=== PATIENT | female | born 1945 | race Caucasian/White ===

== ENCOUNTER 2018-03-28 13:47 | Inpatient (IN) ==
[2018-03-28] MEDS ORDERED: Isovue-370 500 ML INFUS..BTL IV ONE ×2 (14:06→14:35)
[2018-03-28 14:28] LABS: Basophils # 0.1 K/mcL (0.0-0.2); Basophils % 0.8 %; Eosinophils # 0.2 K/mcL (0.0-0.6); Eosinophils % 2.8 %; Hematocrit 40.5 % (35.3-44.9); Hemoglobin 13.6 g/dL (11.5-15.4); Immature Granulocytes % 0.3 % (0-4); Lymphocytes # 2.5 K/mcL (0.6-4.6); Lymphocytes % 38.6 %; Mean Corpuscular HGB Conc 33.6 g/dL (31.6-35.5); Mean Corpuscular Volume 89.2 fL (83.0-100.0); Mean Platelet Volume 9.7 fL (9.4-12.4); Monocytes # 0.5 K/mcL (0.0-1.3); Monocytes % 7.6 %; Neutrophils # 3.2 K/mcL (1.6-8.9); Platelet Count 393 K/mcL (140-400); Red Blood Count 4.54 M/mcL (3.82-4.97); Red Cell Distribution Width 15.3 % (11.5-14.5); Segmented Neutrophils % 49.9 %
--- NOTE | 2018-03-28 14:41 | Emergency Department Note ---
Disposition Clinical Impression: Accelerated hypertension, Lung nodule Hypertension Qualifiers: Hypertension type: unspecified Qualified Code(s): I10 - Essential (primary) hypertension Disposition: Admitted As Inpatient Condition: Good Time of Disposition: 18:26 General Adult HPI - General Chief complaint: ED Dizziness Stated complaint: "htn" Time Seen by Provider: 03/28/18 13:56 Source: patient, family () Mode of arrival: ambulatory Limitations: no limitations Nursing Notes Reviewed: Yes Vital Signs Reviewed: Yes - History of Present Illness HPI Narrative: 72-year-old female recent diagnosis of hypertension presents emergency department with elevated blood pressure. Her blood pressure here is 231/78. She is also been experiencing some headache blurry vision. This is been ongoing for past several weeks. She was recently seen and evaluated 2 days ago for similar symptoms without the elevated blood pressure. She was recently started on lisinopril 20 mg in her primary care physician just recently increased it to twice a day. She is complaining of some pressure like pain in her chest mostly on the right side. She denies any shortness of breath. Denies any injury or trauma. No weakness to her extremities. She is also complaining of some abdominal pain that started past few days. Reports pain as sharp but currently not experiencing any now, she gets nauseated and denies vomiting. Denies any issues with urination. CT scan of her head was performed 2 days ago was unremarkable. Her headache is a throbbing sensation mostly on the right side. This is similar to her prior headaches in the past. She has been taken Tylenol with minimal relief. Pain Scale: 9 - Related Data Home Medications Medication Instructions Recorded Confirmed Allopurinol [Zyloprim 100 MG] 100 mg PO DAILY 03/28/18 03/28/18 Amitriptyline HCl 75 mg PO HS 03/28/18 03/28/18 Atorvastatin Calcium [Lipitor] 20 mg PO HS 03/28/18 03/28/18 Citalopram [CeleXA] 20 mg PO DAILY 03/28/18 03/28/18 DULoxetine [Cymbalta] 30 mg PO DAILY 03/28/18 03/28/18 Ergocalciferol (VITAMIN D2) 50,000 unit PO QWEEK 03/28/18 03/28/18 [Vitamin D2] Furosemide [Lasix] 40 mg PO DAILY 03/28/18 03/28/18 Lansoprazole [Prevacid] 15 mg PO DAILY 03/28/18 03/28/18 Lubiprostone [Amitiza] 24 mcg PO DAILY 03/28/18 03/28/18 Potassium Chloride [K-Tab ER] 20 meq PO HS 03/28/18 03/28/18 Pregabalin [Lyrica] 150 mg PO BID 03/28/18 03/28/18 Previous Rx's Medication Instructions Recorded Ranitidine HCl [Acid Editorial Director] 150 mg PO BID #10 tablet 03/24/18 hydrOXYzine HCl [Hydroxyzine HCl] 25 mg PO Q6HR PRN #20 tab 03/24/18 predniSONE [PredniSONE] 2 tab PO DAILY #6 tablet 03/24/18 Lisinopril [Zestril] 20 mg PO DAILY #15 tablet 03/25/18 Allergies Allergy/AdvReac Type Severity Reaction Status Date / Time diazepam [From Valium] AdvReac Hallucinati Verified 03/28/18 13:54 ng All systems ED: reviewed and negative except as stated. Review of Systems: As Per HPI Constitutional: Denies: fever, chills, weakness ENT ED: Denies: congestion Cardiovascular: Reports: chest pain. Denies: dyspnea on exertion Respiratory: Denies: cough, dyspnea Gastrointestinal: Reports: abdominal pain, nausea. Denies: vomiting, diarrhea Genitourinary: Denies: urgency, dysuria Musculoskeletal: Denies: neck pain Neurological: Reports: headache. Denies: weakness, numbness, paresthesias, confusion Past Medical History - Past Medical History Attestation: Yes The following information was validated with the patient. Source: patient Medical history: Reports: asthma, other Surgical history: Reports: non-contributory Psychiatric history: Reports: no psych history DAIRY MANAGEMENT SPECIALIST history: Reports: no DAIRY MANAGEMENT SPECIALIST history - Social History Smoking Status: Never smoker Smokeless Tobacco Status: No Alcohol use: Reports: none Drug use: Reports: none Physical Exam - General Limitations: no limitations General appearance: alert, in no apparent distress - Head Head exam: atraumatic, normocephalic, normal inspection - Eye Eye exam: Present: normal appearance, PERRL, EOMI. Absent: nystagmus - ENT ENT exam: normal exam, normal oropharynx, mucous membranes moist - Neck Neck exam: Present: normal inspection, full ROM, trachea midline - Chest Chest inspection: Present: normal inspection, symmetric chest wall rise. Absent : tenderness - Respiratory Respiratory exam: Present: normal lung sounds bilaterally. Absent: respiratory distress, wheezes - Cardiovascular Cardiovascular exam: Present: regular rate, normal rhythm, normal heart sounds - Expanded Cardiovascular Exam Peripheral pulses: 2+: radial (R), radial (L) - Abdominal Exam Abdominal exam: Present: soft, tenderness. Absent: distention, guarding, rebound, rigidity, normal bowel sounds, pulsatile mass Abdominal tenderness: Present: diffuse, mild - Extremities Exam Extremities exam: Present: normal inspection, full ROM, normal capillary refill. Absent: tenderness, pedal edema - Back Exam Back exam: Present: normal inspection, full ROM. Absent: tenderness - Neurological Exam Neurological exam: Present: alert, oriented X3, CN II-XII intact - Expanded Neurological Exam Patient oriented to: Present: person, place, time Speech: Present: fluid speech Cranial nerves: EOM function (II, III, IV, ): Normal, facial sensation (V): Normal, facial palsy (VII): Normal, gag reflex (IX): Normal, spinal accessory function (XI): Normal, tongue deviation (XII): Normal Motor strength - LUE: 5/5 Motor strength - RUE: 5/5 Motor strength - LLE: 5/5 Motor strength - RLE: 5/5 Upper motor neuron exam: [place] neglect: Absent bilaterally, pronator drift: Absent bilaterally Sensory exam upper extremity: light touch: Normal Sensory exam lower extremity: light touch: Normal - Psychiatric Psychiatric exam: Present: normal affect, normal mood - Skin Skin exam: Present: warm, dry, intact, normal color. Absent: rash, cyanosis, diaphoresis Course Course Narrative: Patients presenting with multiple complaints mostly headache and elevated blood pressure. This is been ongoing issue for the past week or so. Recently diagnosed with hypertension. Has been placed on lisinopril. Patient reports typical headache throbbing sensation to the back of her head. No recent injury or trauma. Ongoing for the past several days. Her blood pressures elevated here today and states she is been experiencing chest pressure for past several days. Chest pain workup initiated. On examination her heart's regular rate and rhythm. Her pulses are equal bilaterally in the radial. Her abdomen was soft but diffusely tender. There was no pulsatile mass. Given her symptoms concern for possible aortic dissection. Labs and images to evaluate for hypertensive emergency and dissection. EKG did not reveal any acute ischemic changes. Her heart rate is in the 50s. Initially would prefer as small but will treat with nitro given her chest pressure and elevated blood pressure. Will continue to monitor. - Reevaluation(s) Reevaluation #1: Blood pressure gradually improving from a systolic 231 to 211. She is not complaining of any chest pain but does report headache. Tylenol was given. She made a comment about having something stronger. After some further discussion she does recall she typically takes Lyrica for her migraines as well as a different medication but is unable to recall it at this time. She states she has not been taken her Lyrica for the past several days as she is been visiting her very sick sibling. Review for labs does not show any signs for an organ damage. Troponin lesson 0.03. No renal insufficiency. Her blood pressure continues to be elevated. There was one isolated blood pressure of a systolic 158 however it was isolated and a recheck showed systolic 211. At this time patient would benefit of further evaluation for the accelerated hypertension. Patients in agreement with this plan. Time: 17:54 Reevaluation #2: Patient's blood pressure is responsive to my card pain drip. She continues to be comfortable and stable. She states her headache is improving after the Tylenol as well as reduction of her blood pressure. She otherwise remains awake alert and oriented person place and time. Neurologic exam remains unremarkable without focal deficits. - Consultations Consultation #1: Spoke with on-call hospitalist jazmyn Fleming to admit for accelerated hypertension. No further orders at this time Will continue Nicardipine drip to lower BP to goal of SBP 180 Time: 18:25 Vital Signs Temperature 98.0 F 03/28/18 13:50 Pulse Rate 67 03/28/18 13:50 Respiratory Rate 16 03/28/18 13:50 Blood Pressure 231/78 03/28/18 13:50 O2 Sat by Pulse Oximetry 97 03/28/18 13:50 Temperature 98.0 F 03/28/18 20:59 Pulse Rate 65 03/28/18 20:59 Respiratory Rate 18 03/28/18 20:59 Blood Pressure 158/69 03/28/18 20:59 O2 Sat by Pulse Oximetry 97 03/28/18 20:59 Oxygen Delivery Oxygen Delivery Room Air Medical Decision Making - MDM Narrative Medical decision making narrative: Patient was discussed with my attending physician who agrees with ED management and final disposition. They independently evaluated the patient. Please refer to their attestation to this encounter for additional information. This note was generated by [employer] voice recognition software and as a result grammatical or spelling errors may occur using this program. - Medical Records Medical records reviewed: Yes I reviewed the patient's medical records. - Lab Data Lab results reviewed: Yes I reviewed the patient's lab results. Result diagrams: 03/28/18 14:15 03/28/18 14:15 Lab Results 03/28/18 03/28/18 03/28/18 Range/Units 14:05 14:15 14:15 WBC 6.4 (4.3-11.1) K/mcL RBC 4.54 (3.82-4.97) M/mcL Hgb 13.6 (11.5-15.4) g/dL Hct 40.5 (35.3-44.9) % MCV 89.2 (83.0-100.0) fL MCH 30.0 (28.0-33.3) pg MCHC 33.6 (31.6-35.5) g/dL RDW 15.3 H (11.5-14.5) % Plt Count 393 (140-400) K/mcL MPV 9.7 (9.4-12.4) fL Immature Gran % 0.3 (0-4) % Seg Neutrophils % 49.9 % Lymphocytes % 38.6 % Monocytes % 7.6 % Eosinophils % 2.8 % Basophils % 0.8 % Neutrophils # 3.2 (1.6-8.9) K/mcL Lymphocytes # 2.5 (0.6-4.6) K/mcL Monocytes # 0.5 (0.0-1.3) K/mcL Eosinophils # 0.2 (0.0-0.6) K/mcL Basophils # 0.1 (0.0-0.2) K/mcL PT 10.1 (9.4-12.1) Seconds INR 0.9 APTT 33.5 (26.0-36.0) Seconds Sodium 142 (136-145) mEq/L Potassium 3.4 L (3.5-5.1) mEq/L Chloride 107 (98-107) mEq/L Carbon Dioxide 26 (23-29) mEq/L BUN 20 (8-23) mg/dL Creatinine 0.93 (0.60-1.20) mg/dL Est GFR ( Amer) > 60 (> 60) Est GFR (Non-Af Amer) 59 L (> 60) BUN/Creatinine Ratio 22 (6-26) Glucose 92 (70-105) mg/dL Calculated Osmolality 296 (280-300) Calcium 9.5 (8.6-10.3) mg/dL Total Bilirubin (0.3-1.0) mg/dL Direct Bilirubin (0.0-0.2) mg/dL Indirect Bilirubin (0.0-1.2) mg/dL AST (13-39) Units/L ALT (7-52) Units/L Alkaline Phosphatase (34-104) Units/L Troponin I < 0.03 (< 0.04) ng/mL Serum Total Protein (6.4-8.9) g/dL Albumin (3.5-5.7) g/dL Globulin (2.4-3.5) g/dL Albumin/Globulin Ratio (1.1-2.2) 03/28/18 Range/Units 15:21 WBC (4.3-11.1) K/mcL RBC (3.82-4.97) M/mcL Hgb (11.5-15.4) g/dL Hct (35.3-44.9) % MCV (83.0-100.0) fL MCH (28.0-33.3) pg MCHC (31.6-35.5) g/dL RDW (11.5-14.5) % Plt Count (140-400) K/mcL MPV (9.4-12.4) fL Immature Gran % (0-4) % Seg Neutrophils % % Lymphocytes % % Monocytes % % Eosinophils % % Basophils % % Neutrophils # (1.6-8.9) K/mcL Lymphocytes # (0.6-4.6) K/mcL Monocytes # (0.0-1.3) K/mcL Eosinophils # (0.0-0.6) K/mcL Basophils # (0.0-0.2) K/mcL PT (9.4-12.1) Seconds INR APTT (26.0-36.0) Seconds Sodium (136-145) mEq/L Potassium (3.5-5.1) mEq/L Chloride (98-107) mEq/L Carbon Dioxide (23-29) mEq/L BUN (8-23) mg/dL Creatinine (0.60-1.20) mg/dL Est GFR ( Amer) (> 60) Est GFR (Non-Af Amer) (> 60) BUN/Creatinine Ratio (6-26) Glucose (70-105) mg/dL Calculated Osmolality (280-300) Calcium (8.6-10.3) mg/dL Total Bilirubin 0.4 (0.3-1.0) mg/dL Direct Bilirubin 0.1 (0.0-0.2) mg/dL Indirect Bilirubin 0.3 (0.0-1.2) mg/dL AST 16 (13-39) Units/L ALT 11 (7-52) Units/L Alkaline Phosphatase 67 (34-104) Units/L Troponin I (< 0.04) ng/mL Serum Total Protein 6.6 (6.4-8.9) g/dL Albumin 4.0 (3.5-5.7) g/dL Globulin 2.6 (2.4-3.5) g/dL Albumin/Globulin Ratio 1.5 (1.1-2.2) - Radiology Data Radiology results reviewed: Yes I reviewed the patient's radiology results. Chest X-Ray 03/28/18 14:05 IMPRESSION: No evidence for acute cardiopulmonary process. D/ / Robin Navas MD / Robin Navas MD Interpreting Provider: Robin Navas MD Head CTA 03/28/18 14:06 IMPRESSION: Unremarkable CTA of the head. 30% focal stenosis at the origin of the right cervical internal carotid artery secondary to atherosclerotic disease. No acute abnormality or flow-limiting stenosis in the remainder of the major arteries of the neck. No acute intracranial abnormality. Mild parenchymal volume loss. Mild chronic microvascular disease. Sinus mucosal disease, most pronounced in the right sphenoid sinus. D/ / Mitchel Serrato MD / Mitchel Serrato MD Interpreting Provider: Mitchel Serrato MD Neck CTA 03/28/18 14:06 IMPRESSION: Unremarkable CTA of the head. 30% focal stenosis at the origin of the right cervical internal carotid artery secondary to atherosclerotic disease. No acute abnormality or flow-limiting stenosis in the remainder of the major arteries of the neck. No acute intracranial abnormality. Mild parenchymal volume loss. Mild chronic microvascular disease. Sinus mucosal disease, most pronounced in the right sphenoid sinus. D/ / Mitchel Serrato MD / Mitchel Serrato MD Interpreting Provider: Mitchel Serrato MD Abdomen/Pelvis CTA 03/28/18 14:35 IMPRESSION: No evidence of dissection or aneurysm in the chest, abdomen or pelvis. Specifically, no evidence of aortic dissection. No evidence of central pulmonary embolism. 7 mm ground-glass nodule in the right middle lobe. Please see follow-up recommendations below. Otherwise no acute focal process in the chest, abdomen or pelvis. RECOMMENDATIONS: Fleischner Society guidelines for follow-up and management of incidentally detected subsolid pulmonary nodules: Solitary ground glass nodule > than or equal to 6 mm - CT at 6-12 months to confirm persistence, then CT every 2 years until 5 years. - Low risk patients include individuals with minimal or absent history of smoking and other known risk factors. - High risk patients include individuals with a history or smoking or known risk factors. Radiology 2017 http://pubs.rsna.org/doi/full/10.1148/radiol.[email or web address] Subcentimeter incidental thyroid nodule No follow-up imaging is recommended. Reference: J Am Brain Radiol. 2015 Aug;12(2): 143-50 D/ /28/2018 17:18:56 Navneet Roy MD / parris Interpreting Provider: Navneet Roy MD Chest CTA 03/28/18 14:35 IMPRESSION: No evidence of dissection or aneurysm in the chest, abdomen or pelvis. Specifically, no evidence of aortic dissection. No evidence of central pulmonary embolism. 7 mm ground-glass nodule in the right middle lobe. Please see follow-up recommendations below. Otherwise no acute focal process in the chest, abdomen or pelvis. RECOMMENDATIONS: Fleischner Society guidelines for follow-up and management of incidentally detected subsolid pulmonary nodules: Solitary ground glass nodule > than or equal to 6 mm - CT at 6-12 months to confirm persistence, then CT every 2 years until 5 years. - Low risk patients include individuals with minimal or absent history of smoking and other known risk factors. - High risk patients include individuals with a history or smoking or known risk factors. Radiology 2017 http://pubs.rsna.org/doi/full/10.1148/radiol.[email or web address] Subcentimeter incidental thyroid nodule No follow-up imaging is recommended. Reference: J Am Brain Radiol. 2014;12(2): 143-50 D/ / 03/28/2018 17:18:56 Navneet Roy MD / parris Interpreting Provider: Navneet Roy MD - EKG Data EKG #1 EKG attestation: Yes I reviewed and interpreted this EKG. EKG results narrative: EKG performed 1410 normal sinus rhythm 66 beats per minute, normal axis, no ST elevation or depression, good R wave progression, left atrial enlargement, intervals appear within normal limits compared to prior EKG performed 2017 with similar consistent findings of sinus bradycardia 46 bpm. No acute ischemic changes.
[2018-03-28 14:47] LABS: Troponin I < 0.03 ng/mL (< 0.04)
[2018-03-28 14:52] LABS: INR 0.9; Prothrombin Time 10.1 Seconds (9.4-12.1)
[2018-03-28 14:55] LABS: Activated Partial Thrombo Time 33.5 Seconds (26.0-36.0)
[2018-03-28 15:11] LABS: BUN/Creatinine Ratio 22 (6-26); Blood Urea Nitrogen 20 mg/dL (8-23); Calcium 9.5 mg/dL (8.6-10.3); Carbon Dioxide 26 mEq/L (23-29); Chloride 107 mEq/L (98-107); Glucose 92 mg/dL (70-105); Osmolality,Calculated 296 (280-300); Potassium 3.4 mEq/L (3.5-5.1); Sodium 142 mEq/L (136-145); eGFR For Non-African Americans 59 (> 60)
[2018-03-28] MEDS: Nitroglycerin 0.4 MG TAB.SUBL SL ONE ×2 (15:17→15:36)
--- NOTE | 2018-03-28 15:34 | Emergency Department Note ---
Disposition Clinical Impression: Hypertension Qualifiers: Hypertension type: unspecified Qualified Code(s): I10 - Essential (primary) hypertension Disposition: Still a Patient Forms: ED Satisfaction Letter General Adult HPI - General Chief complaint: ED Dizziness Stated complaint: "htn" Time Seen by Provider: 03/28/18 13:56 Source: patient, family () Mode of arrival: ambulatory Limitations: no limitations - History of Present Illness Pain Scale: 9 - Related Data Previous Rx's Medication Instructions Recorded Ranitidine HCl [Acid Electric Tool Repairer] 150 mg PO BID #10 tablet 03/24/18 hydrOXYzine HCl [Hydroxyzine HCl] 25 mg PO Q6HR PRN #20 tab 03/24/18 predniSONE [PredniSONE] 2 tab PO DAILY #6 tablet 03/24/18 Lisinopril [Zestril] 20 mg PO DAILY #15 tablet 03/25/18 Allergies Allergy/AdvReac Type Severity Reaction Status Date / Time diazepam [From Valium] AdvReac Hallucinati Verified 03/28/18 13:54 ng Constitutional: Denies: fever, chills, weakness ENT ED: Denies: congestion Cardiovascular: Reports: chest pain. Denies: dyspnea on exertion Respiratory: Denies: cough, dyspnea Gastrointestinal: Reports: abdominal pain, nausea. Denies: vomiting, diarrhea Genitourinary: Denies: urgency, dysuria Musculoskeletal: Denies: neck pain Neurological: Reports: headache. Denies: weakness, numbness, paresthesias, confusion Past Medical History - Past Medical History Medical history: Reports: asthma, other Surgical history: Reports: non-contributory Psychiatric history: Reports: no psych history GEAR SETTER history: Reports: no GEAR SETTER history - Social History Smoking Status: Never smoker Smokeless Tobacco Status: No Alcohol use: Reports: none Drug use: Reports: none Physical Exam - General Limitations: no limitations General appearance: alert, in no apparent distress Course Vital Signs Temperature 98.0 F 03/28/18 13:50 Pulse Rate 67 03/28/18 13:50 Respiratory Rate 16 03/28/18 13:50 Blood Pressure 231/78 03/28/18 13:50 O2 Sat by Pulse Oximetry 97 03/28/18 13:50 Temperature 98.0 F 03/28/18 14:15 Pulse Rate 52 03/28/18 14:17 Respiratory Rate 16 09/07/18 14:17 Blood Pressure 211/75 03/28/18 14:17 O2 Sat by Pulse Oximetry 99 03/28/18 14:17 Oxygen Delivery Oxygen Delivery Room Air Medical Decision Making - Lab Data Result diagrams: 03/28/18 14:15 03/28/18 14:15 Lab Results 03/28/18 03/28/18 03/28/18 Range/Units 14:05 14:15 14:15 WBC 6.4 (4.3-11.1) K/mcL RBC 4.54 (3.82-4.97) M/mcL Hgb 13.6 (11.5-15.4) g/dL Hct 40.5 (35.3-44.9) % MCV 89.2 (83.0-100.0) fL MCH 30.0 (28.0-33.3) pg MCHC 33.6 (31.6-35.5) g/dL RDW 15.3 H (11.5-14.5) % Plt Count 393 (140-400) K/mcL MPV 9.7 (9.4-12.4) fL Immature Gran % 0.3 (0-4) % Seg Neutrophils % 49.9 % Lymphocytes % 38.6 % Monocytes % 7.6 % Eosinophils % 2.8 % Basophils % 0.8 % Neutrophils # 3.2 (1.6-8.9) K/mcL Lymphocytes # 2.5 (0.6-4.6) K/mcL Monocytes # 0.5 (0.0-1.3) K/mcL Eosinophils # 0.2 (0.0-0.6) K/mcL Basophils # 0.1 (0.0-0.2) K/mcL PT 10.1 (9.4-12.1) Seconds INR 0.9 APTT 33.5 (26.0-36.0) Seconds Sodium 142 (136-145) mEq/L Potassium 3.4 L (3.5-5.1) mEq/L Chloride 107 (98-107) mEq/L Carbon Dioxide 26 (23-29) mEq/L BUN 20 (8-23) mg/dL Creatinine 0.93 (0.60-1.20) mg/dL Est GFR ( Amer) > 60 (> 60) Est GFR (Non-Af Amer) 59 L (> 60) BUN/Creatinine Ratio 22 (6-26) Glucose 92 (70-105) mg/dL Calculated Osmolality 296 (280-300) Calcium 9.5 (8.6-10.3) mg/dL Troponin I < 0.03 (< 0.04) ng/mL Attestation Statement - Attestation Attestation: I examined this patient and my medical decision-making was reviewed with the Resident Physician. I agree with the documented findings, disposition and treatment plan as described except to the extent set forth below. 72 year old female presents to the ED with complaints of HTN and headache with dizziness and blurriness to her vision in addition to chest and abdominal pain with tenderness in the abdomen. She has a history of HTN and is currently only on lisinopril 20mg daily and hydroxyzine . Josette current blood presure is systolic 200s. We will do a hypertensive workup in addition to CTA head, neck, chest and abdomen for dissection and aneurysmal bleeds. Nickie will be treated with ntro for blood pressur emaangement as she is currenlty bradycardiac to the 50s.
[2018-03-28] MEDS: 0.9 % Sodium Chloride 500 ML IVC SCH ×2 (15:38→21:58)
[2018-03-28 16:08] LABS: Albumin/Globulin Ratio 1.5 (1.1-2.2); Bilirubin,Direct 0.1 mg/dL (0.0-0.2); Bilirubin,Indirect 0.3 mg/dL (0.0-1.2); Bilirubin,Total 0.4 mg/dL (0.3-1.0); Globulin 2.6 g/dL (2.4-3.5); Total Protein 6.6 g/dL (6.4-8.9)
[2018-03-28] MEDS: niCARdipine 40 MG/200 ML MLS IVC SCH (19:00)
[2018-03-28] MEDS: Acetaminophen/Aspirin/Caffeine TABLET PO PRN (21:54)
[2018-03-28] MEDS ORDERED: Naloxone 0.4 MG/ML INJ IVP PRN (22:35)
--- NOTE | 2018-03-28 22:59 | Internal Med History&Physical ---
Date of Encounter: 03/29/18 Time of Encounter: 21:28 Internal Medicine - H&P: HPI Chief complaint: Hypertensive urgency Admitted From: Emergency Dept Plans for Post Hospital Care: Home History of present illness: Ms. Cotter is a 72 year old female Patient presented to the ER for elevated blood pressure and headache. She states that she was in the ER 3 days ago with fever, headache and was found to have elevated blood pressure at that time as well. She returned this evening with a headache that did not resolve and was found to have continued hypertension. She states that she thinks it was triggered by being outside at her brother's , as she has a history of allergies. The headache is located across the front of her head, and is worsened with light. She usually takes Excedrin for headaches, and it has helped but not eliminated the pain. In the ER her blood pressure was 231/78, head and neck CT were unremarkable. She has a recent history of hypertension and takes lisinopril. She was started on Cardene drip and admitted for observation of her blood pressure and headache. Upon my assessment patient's blood pressure has improved to systolic of 170s. She states that she also has had right sided chest pain that is reproducible with palpation and epigastric abdominal pain, both of which have been presents for several weeks. She denies leg pain, has had nausea and vomiting. No diarrhea lately but comes and goes. Past Med Surg Social Fam HX - Past Medical History Medical history: asthma, other Additional medical history: chronic back pain, blood clot in bladder, prolapsed bladder Psychiatric history: no psych history - Past Surgical History Surgical History: non-contributory Additional surgical history: bladder surgery (mesh) - Social History Smoking Status: Never smoker Smokeless Tobacco Status: No Alcohol use: none Drug use: none Internal Medicine - H&P: Meds Ranitidine HCl [Acid Multifocal Button Inspector] 150 mg PO BID #10 tablet 03/24/18 [Rx] hydrOXYzine HCl [Hydroxyzine HCl] 25 mg PO Q6HR PRN #20 tab 03/24/18 [Rx] predniSONE [PredniSONE] 2 tab PO DAILY #6 tablet 03/24/18 [Rx] Lisinopril [Zestril] 20 mg PO DAILY #15 tablet 03/25/18 [Rx] Allopurinol [Zyloprim 100 MG] 100 mg PO DAILY 03/28/18 [History] Amitriptyline HCl 75 mg PO HS 03/28/18 [History] Atorvastatin Calcium [Lipitor] 20 mg PO HS 03/28/18 [History] Citalopram [CeleXA] 20 mg PO DAILY 03/28/18 [History] DULoxetine [Cymbalta] 30 mg PO DAILY 03/28/18 [History] Ergocalciferol (VITAMIN D2) [Vitamin D2] 50,000 unit PO QWEEK 03/28/18 [History] Furosemide [Lasix] 40 mg PO DAILY 03/28/18 [History] Lansoprazole [Prevacid] 15 mg PO DAILY 03/28/18 [History] Lubiprostone [Amitiza] 24 mcg PO DAILY 03/28/18 [History] Potassium Chloride [K-Tab ER] 20 meq PO HS 03/28/18 [History] Pregabalin [Lyrica] 150 mg PO BID 03/28/18 [History] 3 Allergy/AdvReac Type Severity Reaction Status Date / Time diazepam [From Valium] AdvReac Hallucinati Verified 03/28/18 13:54 ng All Systems PM: A 10-system review of systems was performed and is negative for pertinent findings except as documented above in the HPI. - Constitutional Vitals: Temp Pulse Resp BP Pulse Ox 98.0 F 65 18 158/69 97 03/28/18 20:59 03/28/18 20:59 03/28/18 20:59 03/28/18 20:59 03/28/18 20:59 General appearance: Present: cooperative, mild distress, A&O X 3, pleasant, answers questions appropriately Exam: Distress due to head ache - Head Head exam: Present: atraumatic, normocephalic - Eye Eye exam: Present: EOMI, normal appearance - Neck Neck exam general surgery: Present: full ROM. Absent: tenderness - Respiratory Respiratory exam: Present: chest wall tenderness, CTAB. Absent: rales, respiratory distress, rhonchi, wheezes Additional comments: Upper right sided pain with palpation, mild - Cardiovascular Cardiovascular exam: Present: RRR. Absent: diastolic murmur, systolic murmur - GI/Abdominal GI/Abdominal exam: Present: normal bowel sounds, soft, tenderness Additional comments: epigastric tenderness with palpation. - Extremities Exam Extremities exam: Present: warm, radial pulses palpable and symmetrical. Absent : pedal edema, tenderness - Neurological Exam Neurological exam: Present: no focal deficits, strengths equal and symetr throughout. Absent: motor sensory deficit, facial droop, speech deficit - Skin Skin exam: Present: dry, normal color, warm Internal Med - H&P Results - Labs CBC & Chem 7: 03/29/18 03:15 03/29/18 03:15 - Assessment and plan (1) Hypertensive urgency Current Visit: Yes Status: Acute Assessment and plan: Patient started on Cardene drip, blood pressures have improved. Continue to monitor while on the drip Will need to monitor blood pressures after switching to oral alternatives to ensure control. (2) Headache Current Visit: No Status: Acute Assessment and plan: Likely secondary to blood pressure and stress of recent loss of close family member. Takes Excedrin at home. Head and neck CT unremarkable. Continue Excedrin Caution Toradol due to kidney function, phenergan and benadryl IV now. Qualifiers: Headache type: unspecified Headache chronicity pattern: chronic headache Intractability: not intractable Qualified Code(s): R51 - Headache (3) Epigastric abdominal pain Current Visit: Yes Status: Acute Assessment and plan: Unclear etiology, has been present for several weeks. Abdomen and pelvis CT unremarkable. Could be secondary to nausea, as some tenderness with palpation. Patient still able to eat and drink with out difficulty. Continue to monitor. (4) Nausea & vomiting Current Visit: Yes Status: Acute Assessment and plan: Patient had 1 episode of vomting during the night Will add zofran PRN Qualifiers: Qualified Code(s): R11.2 - Nausea with vomiting, unspecified (5) Right-sided chest wall pain Current Visit: Yes Status: Acute Assessment and plan: Reproducible with palpation, CT angio showed 7mm ground glass nodule in right middle lobe. Pain likely not cardiac in nature. Radiology recommended repeat CT 6-12 months to confirm persistence, then CT every 2 years until 5 years. Continue to monitor. (6) CKD (chronic kidney disease) stage 3, GFR 30-59 ml/min Current Visit: Yes Status: Acute Assessment and plan: Caution with nephrotoxic medications like toradol, also due to her elevated blood pressure. Continue to monitor Repeat labs in the morning. - Time Spent With Patient Total time spent is greater than 50% in coordination of care (as documented) at patient's floor/unit and/or counseling patient: Greater than 35 minutes
[2018-03-29] MEDS ORDERED: *HR* Promethazine 25 MG/ML VIAL IVP ONE (00:03)
[2018-03-29] MEDS: Ondansetron ODT 4 MG TAB.RAPDIS SL PRN ×2 (02:54→07:31)
[2018-03-29] MEDS: Acetaminophen/Aspirin/Caffeine TABLET PO PRN ×3 (03:55→23:31)
[2018-03-29 04:19] LABS: BUN/Creatinine Ratio 14 (6-26); Blood Urea Nitrogen 11 mg/dL (8-23); Calcium 9.5 mg/dL (8.6-10.3); Carbon Dioxide 25 mEq/L (23-29); Chloride 102 mEq/L (98-107); Glucose 123 mg/dL (70-105); Osmolality,Calculated 285 (280-300); Potassium 3.3 mEq/L (3.5-5.1); Sodium 137 mEq/L (136-145); eGFR For Non-African Americans > 60 (> 60)
[2018-03-29 04:29] LABS: Hematocrit 43.4 % (35.3-44.9); Hemoglobin 14.6 g/dL (11.5-15.4); Mean Corpuscular HGB Conc 33.6 g/dL (31.6-35.5); Mean Corpuscular Hemoglobin 29.4 pg (28.0-33.3); Mean Corpuscular Volume 87.5 fL (83.0-100.0); Mean Platelet Volume 10.3 fL (9.4-12.4); Platelet Count 443 K/mcL (140-400); Red Blood Count 4.96 M/mcL (3.82-4.97); Red Cell Distribution Width 15.2 % (11.5-14.5)
[2018-03-29] MEDS: niCARdipine 40 MG/200 ML MLS IVC SCH (07:31)
[2018-03-29] MEDS ORDERED: Potassium Chloride Elixir 20 MEQ/15 ML UDC PO ONE (07:54)
[2018-03-29] MEDS ORDERED: Furosemide 40 MG TABLET PO SCH (09:00)
[2018-03-29] MEDS: Lisinopril 20 MG TABLET PO SCH (09:18)
[2018-03-29] MEDS ORDERED: *HR* Labetalol 20 MG/4 ML SYRINGE IVP PRN (09:34)
--- NOTE | 2018-03-29 09:41 | Internal Med Progress Note ---
Hospitalist Progress Note - Encounter Date of Encounter: 03/29/18 Time of Encounter: 09:48 - Subjective Interval History: Patient evaluated at bedside, she report having a frontal headache, associated with nausea denies vomiting or focal deficit or neurological changes. Denies chest pain or shortness of breath as well as abdominal pain. - Exam Vitals: Temp Pulse Resp BP Pulse Ox 97.8 F 82 18 158/79 94 03/29/18 07:39 03/29/18 07:39 03/29/18 07:39 03/29/18 07:39 03/29/18 07:39 Exam: General: Alert and oriented 3. Mild distress due to headache. Skin:Normal color, no rash, no lesions. HEENT:EOM, pupils equal, round and reactive. Cardiovascular: Regular, Normal S1 & S2, no rubs, murmurs or gallops. Lungs: Clear breath sounds bilaterally, no wheezes or crackles. Abdomen: Soft, NABS in all 4 quadrants, suprapubic tenderness to deep palpation. No guarding. Extremities: No deformity, no edema or tenderness, no joint swelling or clubbing. Neurological:Normal cognition and motor skills. CN II-XII intact. Rest of the physical exam is non contributory - Assessment and Plan (1) Uncontrolled hypertension Current Visit: Yes Status: Acute Assessment and Plan: Patient reports not being compliant with her home antihypertensive medications for some time as she was going through some family issues and felt that she did not need the medications. Plan: - D/C nicardipine drip - Patient started on her home antihypertensive medications - Furosemide 40mg daily and Lisinopril 20mg daily - Labetalol 5mg/IV Q6HR PRN for SBP >190 - Patient educated about the importance of being compliant with her medications. - Needs to remain in the hospital for close BP monitoring, she might need adjustment of her home antihypertensive medications before D/C - D/C IV fluids (2) Headache Current Visit: No Status: Acute Assessment and Plan: Patient has a Hx of migraine headache. Head CT: No acute intracranial abnormality. Plan: - Continue Exedrin EX 2 pills Q6HR PRN for pain (3) Hypokalemia Current Visit: No Status: Acute Assessment and Plan: Electrolytes replaced. Follow-up a.m. BMP. (4) Nausea Current Visit: Yes Status: Acute Assessment and Plan: Reports feeling nauseated. States that this normally happens when she has migraine headache Plan: - On Ondansetron 4mg/IV Q4HR PRN for nausea/vomiting - DVT Prophylaxis: Chemical DVT prophylaxis with Heparin 5000 units Q12HR SUbQ - Time Spent with Patient Total time spent is greater than 50% in coordination of care (as documented) at patient's floor/unit and/or counseling patient: Greater than 35 minutes Plan of Care Discussed with: patient (and the nurse.) Internal Medicine: Result - Labs CBC & Chem 7: 03/29/18 03:15 03/29/18 03:15 Labs: Short CBC 03/29/18 Range/Units 03:15 WBC 9.4 (4.3-11.1) K/mcL Hgb 14.6 (11.5-15.4) g/dL Hct 43.4 (35.3-44.9) % Plt Count 443 H (140-400) K/mcL BMP 03/29/18 03:15 Sodium 137 Potassium 3.3 L Chloride 102 Carbon Dioxide 25 BUN 11 Creatinine 0.76 Glucose 123 H Calcium 9.5 - ABG Interpretation ABG results: PT/INR, D-dimer PT 10.1 Seconds (9.4-12.1) 03/28/18 14:05 Consult Discharge Plan - Plan Referrals: Pedro Melendrez MD [Primary Care Provider] - (2) Headache Qualifiers: Headache type: unspecified Headache chronicity pattern: chronic headache Intractability: not intractable Qualified Code(s): R51 - Headache
[2018-03-29] MEDS: *HR* Promethazine 25 MG/ML VIAL IVP PRN ×2 (16:33→23:32)
[2018-03-29] MEDS: *HR* Heparin 5,000 UNIT/ML VIAL SQ SCH (16:36)
[2018-03-30] MEDS: *HR* Promethazine 25 MG/ML VIAL IVP PRN (06:28)
[2018-03-30] MEDS: *HR* Heparin 5,000 UNIT/ML VIAL SQ SCH ×2 (06:29→17:38)
[2018-03-30 06:47] LABS: Basophils % 0.4 %; Eosinophils # 0.1 K/mcL (0.0-0.6); Hematocrit 44.2 % (35.3-44.9); Hemoglobin 14.6 g/dL (11.5-15.4); Immature Granulocytes % 0.1 % (0-4); Lymphocytes # 1.7 K/mcL (0.6-4.6); Lymphocytes % 17.6 %; Mean Corpuscular Hemoglobin 28.8 pg (28.0-33.3); Mean Corpuscular Volume 87.2 fL (83.0-100.0); Mean Platelet Volume 9.8 fL (9.4-12.4); Monocytes # 0.6 K/mcL (0.0-1.3); Monocytes % 6.3 %; Neutrophils # 7.3 K/mcL (1.6-8.9); Platelet Count 476 K/mcL (140-400); Red Blood Count 5.07 M/mcL (3.82-4.97); Red Cell Distribution Width 15.5 % (11.5-14.5); Segmented Neutrophils % 74.6 %
[2018-03-30 07:11] LABS: Calcium 9.8 mg/dL (8.6-10.3); Magnesium 2.2 mg/dL (1.6-2.6); Potassium 3.3 mEq/L (3.5-5.1)
[2018-03-30] MEDS: D5% in 0.45% NACL 1,000 ML IVC SCH ×2 (09:13→22:03)
[2018-03-30] MEDS: Ondansetron 4 MG/2 ML VIAL IVP SCH ×4 (09:13→21:59)
[2018-03-30] MEDS ORDERED: hydrALAZINE 25 MG TABLET PO ONE (09:21)
[2018-03-30] MEDS: Lisinopril 20 MG TABLET PO SCH (10:42)
[2018-03-30] MEDS ORDERED: SUMAtriptan succinate 25 MG TABLET PO ONE (11:23)
[2018-03-30] MEDS: *HR* Promethazine 25 MG/ML VIAL IVP SCH ×2 (11:28→17:38)
--- NOTE | 2018-03-30 11:28 | Internal Med Progress Note ---
Hospitalist Progress Note - Encounter Date of Encounter: 03/30/18 Time of Encounter: 11:25 - Subjective Interval History: Evaluated at bedside, patient reports that she is still having a headache, associated with nausea, vomiting and abdominal discomfort. Denies chest pain, of shortness of breath. Denies fever or chills. - Exam Vitals: Temp Pulse Resp BP Pulse Ox 98.4 F 58 18 142/77 94 03/30/18 07:17 03/30/18 09:45 03/30/18 07:17 03/30/18 09:45 03/30/18 07:17 Exam: General: Alert and oriented 3. Mild distress due to nausea and vomiting. Cardiovascular: Regular, Normal S1 & S2, no rubs, murmurs or gallops. Lungs: Clear breath sounds bilaterally, no wheezes or crackles. Abdomen: Soft, NABS in all 4 quadrants, midl generalized tenderness to deep palpation. No guarding. Extremities: No deformity, no edema or tenderness, no joint swelling or clubbing. Neurological: CN II-XII intact. Rest of the physical exam is non contributory - Assessment and Plan (1) Uncontrolled hypertension Current Visit: Yes Status: Acute Assessment and Plan: BP sub-optimally controlled Plan: - Increase metoprolol to 50mg/PO BID - Started on Hydralazine 50mg TID PO - D/C furosemide - Continue lisinopril 20mg PO daily - ON labetalol 5mg/IV PRN for SBP >190 (2) Headache Current Visit: No Status: Acute Assessment and Plan: Patient still reporting headache. Plan: - Continue exedrin EX - Started on Sumatriptan 25mg PO daily - (3) Hypokalemia Current Visit: No Status: Acute Assessment and Plan: Possible due to GI loss vs diruretic Plan: - Electrolyte replaced (4) Nausea & vomiting Current Visit: Yes Status: Acute Assessment and Plan: Associated with abdominal discomfort. Plan: - started on Ondansetrom 4mg/IV Q4 hours and Promethazine 12.5mg/IV scheduled - if abdominal pain persist will consider CT abd/pelvis for further evaluation. (5) Acute kidney injury Current Visit: Yes Status: Acute Assessment and Plan: Possible due to diruretic. Plan: - Discontinue Furosemide - Started on gentle IV hydration with D50.45% at 75mls/hr DVT Prophylaxis: Continue chemical DVT prophylaxis with heparin 5000 units subcutaneous twice a day - Summary of Assessment and Plan Summary of Assessment and Plan: Patient to remain in the hospital for intractable nausea. Vomiting. - Time Spent with Patient Total time spent is greater than 50% in coordination of care (as documented) at patient's floor/unit and/or counseling patient: Greater than 35 minutes Plan of Care Discussed with: patient (and the nurse.) Internal Medicine: Result - Labs CBC & Chem 7: 03/30/18 06:09 03/30/18 06:09 Labs: Short CBC 03/30/18 Range/Units 06:09 WBC 9.8 (4.3-11.1) K/mcL Hgb 14.6 (11.5-15.4) g/dL Hct 44.2 (35.3-44.9) % Plt Count 476 H (140-400) K/mcL Neutrophils # 7.3 (1.6-8.9) K/mcL BMP 03/30/18 06:09 Sodium 137 Potassium 3.3 L Chloride 99 Carbon Dioxide 27 BUN 21 Creatinine 1.24 H Glucose 140 H Calcium 9.8 - ABG Interpretation ABG results: PT/INR, D-dimer PT 10.1 Seconds (9.4-12.1) 03/28/18 14:05 Consult Discharge Plan - Plan Referrals: Pedro Melendrez MD [Primary Care Provider] - (2) Headache Qualifiers: Headache type: unspecified Headache chronicity pattern: chronic headache Intractability: not intractable Qualified Code(s): R51 - Headache (4) Nausea & vomiting Qualifiers: Vomiting type: unspecified Vomiting Intractability: non-intractable Qualified Code(s): R11.2 - Nausea with vomiting, unspecified
[2018-03-30] MEDS: hydrALAZINE 25 MG TABLET PO SCH (15:59)
[2018-03-30] MEDS ORDERED: hydrALAZINE 25 MG TABLET PO SCH (16:00)
[2018-03-31] MEDS: hydrALAZINE 25 MG TABLET PO SCH ×3 (00:11→15:50)
[2018-03-31] MEDS: *HR* Promethazine 25 MG/ML VIAL IVP SCH ×2 (00:24→06:05)
[2018-03-31] MEDS: Ondansetron 4 MG/2 ML VIAL IVP SCH ×6 (00:24→21:26)
[2018-03-31 05:24] LABS: Calcium 9.3 mg/dL (8.6-10.3); Magnesium 1.9 mg/dL (1.6-2.6); Potassium 3.7 mEq/L (3.5-5.1)
[2018-03-31] MEDS: *HR* Heparin 5,000 UNIT/ML VIAL SQ SCH ×2 (06:05→17:28)
[2018-03-31] MEDS: Lisinopril 20 MG TABLET PO SCH (08:05)
--- NOTE | 2018-03-31 09:10 | Internal Med Progress Note ---
Hospitalist Progress Note - Encounter Date of Encounter: 03/31/18 Time of Encounter: 09:06 - Subjective Interval History: Evaluated at bedside, reports that her headache significantly improve after she received sumatriptan yesterday. Report still having a slight headache but much better than yesterday. States that she has been unable to keep anything down due to nausea and vomiting. Denies hematemesis. But reports abdominal pain. Denies chest pain or shortness of breath. No focal weakness, or neurological deficit. - Exam Vitals: Temp Pulse Resp BP Pulse Ox 99.1 F 48 16 140/64 93 03/31/18 08:02 03/31/18 08:02 03/31/18 08:02 03/31/18 08:02 03/31/18 08:02 Exam: General: Alert and oriented 3. Mild distress due to persistent nausea and vomiting. Cardiovascular: Regular, Normal S1 & S2, no rubs, murmurs or gallops. Lungs: Clear breath sounds bilaterally, no wheezes or crackles. Abdomen: Soft, NABS in all 4 quadrants, mild generalized tenderness to deep palpation. No guarding. Extremities: No deformity, no edema or tenderness, no joint swelling or clubbing. Neurological: CN II-XII intact. Rest of the physical exam is non contributory - Assessment and Plan (1) Nausea & vomiting Current Visit: Yes Status: Acute Assessment and Plan: Patient still complaining of nausea associated with intermittent bilious vomiting Plan: DC promethazine Start Metoclopramide 10mg/IV Q6HR Continue Ondanzetron 4mg/IV Q4HRs Pantoprazole 40mg/IV daily F/U abd/pelvis CT w/o contrast Continue D5/0.45%ns at 75mls/hr for maintenance as patient as patient not tolerating PO intake (2) Hypertension Current Visit: Yes Status: Acute Assessment and Plan: Presented with HTN crisis due to medication noncompliance Plan: Blood pressure controlled continue metoprolol 25mg BID PO Hydralazine 100mg/PO TID and lisinopril 20mg daily Labetalol 5mg/IV Q6HR PRN for SBP >190 (3) Headache Current Visit: No Status: Acute Assessment and Plan: Patient with a Hx of migrane headache. Still reports having a slight headache but improved form the past couple of days Plan: Continue Exedrin EX started on Sumatriptan 50mg/PO daily DVT Prophylaxis: On heparin 5000 units SUbQ BID for DVT prophylaxis - Summary of Assessment and Plan Summary of Assessment and Plan: Patient to continue hospitalized due to intractable nausea and vomiting. - Time Spent with Patient Total time spent is greater than 50% in coordination of care (as documented) at patient's floor/unit and/or counseling patient: Greater than 35 minutes Plan of Care Discussed with: patient Internal Medicine: Result - Labs CBC & Chem 7: 03/30/18 06:09 03/31/18 04:41 Labs: BMP 03/31/18 04:41 Sodium 135 L Potassium 3.7 Chloride 101 Carbon Dioxide 28 BUN 19 Creatinine 1.19 Glucose 122 H Calcium 9.3 - ABG Interpretation ABG results: PT/INR, D-dimer PT 10.1 Seconds (9.4-12.1) 03/28/18 14:05 Consult Discharge Plan - Plan Referrals: Pedro Melendrez MD [Primary Care Provider] - (1) Nausea & vomiting Qualifiers: Vomiting type: unspecified Vomiting Intractability: intractable Qualified Code(s): R11.2 - Nausea with vomiting, unspecified (2) Hypertension Qualifiers: Hypertension type: unspecified Qualified Code(s): I10 - Essential (primary) hypertension (3) Headache Qualifiers: Headache type: unspecified Headache chronicity pattern: chronic headache Intractability: not intractable Qualified Code(s): R51 - Headache
[2018-03-31] MEDS ORDERED: Pantoprazole 40 MG VIAL IVP SCH (09:15)
[2018-03-31] MEDS ORDERED: SUMAtriptan succinate 50 MG TABLET PO PRN (09:15)
[2018-03-31] MEDS: D5% in 0.45% NACL 1,000 ML IVC SCH (11:42)
[2018-03-31] MEDS: Metoclopramide 10 MG/2 ML VIAL IVP SCH ×2 (11:42→17:28)
--- NOTE | 2018-03-31 16:52 | Electrocardiograph Report ---
[place] [address] Test Date: 2018-03-28 Pat Name: Medina Cotter Department: [id number] Room: 2N07 Gender: F Planning Intern: : 1945 Requested By: Robin Morelos Order Number: [id number] Reading MD: William Irving Measurements Intervals [place] Rate: 66 P: 61 UT: 158 QRS: 1 QRSD: 100 T: 38 QT: 447 QTc: 469 Interpretive Statements Sinus rhythm Left atrial enlargement Electronically Signed On 03-31-2018 16:51:30 EDT by William Irving
[2018-04-01] MEDS: hydrALAZINE 25 MG TABLET PO SCH ×2 (00:40→07:59)
[2018-04-01] MEDS: Metoclopramide 10 MG/2 ML VIAL IVP SCH ×3 (00:40→11:23)
[2018-04-01] MEDS: Ondansetron 4 MG/2 ML VIAL IVP SCH ×3 (00:40→07:58)
[2018-04-01] MEDS: D5% in 0.45% NACL 1,000 ML IVC SCH (00:47)
[2018-04-01] MEDS: *HR* Heparin 5,000 UNIT/ML VIAL SQ SCH (05:34)
[2018-04-01 06:50] LABS: Calcium 9.2 mg/dL (8.6-10.3); Magnesium 1.9 mg/dL (1.6-2.6); Potassium 3.7 mEq/L (3.5-5.1)
[2018-04-01] MEDS: Lisinopril 20 MG TABLET PO SCH (07:59)
[2018-04-01] MEDS: Acetaminophen/Aspirin/Caffeine TABLET PO PRN (08:20)
[2018-04-01] MEDS ORDERED: Metoprolol XL (24 HR) Succ 25 MG TAB.ER.24H PO SCH (09:00)
[2018-04-01 11:35] VITALS: BP 146/61
--- NOTE | 2018-04-01 11:55 | Discharge Summary ---
- NOTES TO OUTPATIENT PROVIDER Notes to Outpatient Provider: Patient to follow-up with primary care provider for hypertension management. Date of Encounter: 04/01/18 Time of Encounter: 11:00 - Discharge Diagnosis (1) Headache Priority: Secondary Status: Acute Qualifiers: Headache type: unspecified Headache chronicity pattern: chronic headache Intractability: not intractable Qualified Code(s): R51 - Headache (2) Hypertension Priority: Primary Status: Acute Qualifiers: Hypertension type: unspecified Qualified Code(s): I10 - Essential (primary ) hypertension (3) Nausea & vomiting Priority: Secondary Status: Acute Qualifiers: Vomiting type: unspecified Vomiting Intractability: intractable Qualified Code(s): R11.2 - Nausea with vomiting, unspecified Hospital course: Patient is 72-year-old female with past medical history significant for CKD stage III who presented to the ER due to elevated blood pressures and headache. In the ER her blood pressure was 231/78, head and neck CT were unremarkable. She was started on Cardene drip and admitted for observation of her blood pressure and headache. During patients hospital stay her blood pressures returned to normal limits after metoprolol tartrate and hydralazine was added. Patient will be discharged to continue lisinopril and to start metoprolol tartrate and hydralazine. Patient will follow up with primary care provider for hypertension management. - Time Spent with Patient Total time spent providing and/or coordinating discharge services: Less than 30 minutes - Discharge Medications Prescriptions: hydrALAZINE [HydrALAZINE] 100 mg PO Q8HR #90 tablet Metoprolol XL (24 HR) Succ [Toprol Xl] 25 mg PO DAILY #30 tab.er.24h Home Medications: Ranitidine HCl [Acid Forming Machine Operator] 150 mg PO BID #10 tablet 03/24/18 [Rx] hydrOXYzine HCl [Hydroxyzine HCl] 25 mg PO Q6HR PRN #20 tab 03/24/18 [Rx] predniSONE [PredniSONE] 2 tab PO DAILY #6 tablet 03/24/18 [Rx] Lisinopril [Zestril] 20 mg PO DAILY #15 tablet 03/25/18 [Rx] Allopurinol [Zyloprim 100 MG] 100 mg PO DAILY 03/28/18 [History] Amitriptyline HCl 75 mg PO HS 03/28/18 [History] Atorvastatin Calcium [Lipitor] 20 mg PO HS 03/28/18 [History] Citalopram [CeleXA] 20 mg PO DAILY 03/28/18 [History] Ergocalciferol (VITAMIN D2) [Vitamin D2] 50,000 unit PO QWEEK 03/28/18 [History] Furosemide [Lasix] 40 mg PO DAILY 03/28/18 [History] Lansoprazole [Prevacid] 15 mg PO DAILY 03/28/18 [History] Lubiprostone [Amitiza] 24 mcg PO DAILY 03/28/18 [History] Potassium Chloride [K-Tab ER] 20 meq PO HS 03/28/18 [History] Pregabalin [Lyrica] 150 mg PO BID 03/28/18 [History] Metoprolol XL (24 HR) Succ [Toprol Xl] 25 mg PO DAILY #30 tab.er.24h 04/01/18 [ Rx] hydrALAZINE [HydrALAZINE] 100 mg PO Q8HR #90 tablet 04/01/18 [Rx] Allergies/Adverse Reactions: 3 Allergy/AdvReac Type Severity Reaction Status Date / Time diazepam [From Valium] AdvReac Hallucinati Verified 03/28/18 13:54 ng Date of admission: 03/31/18 15:30 Primary care physician: Pedro Melendrez MD - Constitutional Vitals: Temp Pulse Resp BP Pulse Ox 99.1 F 66 18 146/61 95 04/01/18 11:34 04/01/18 11:32 04/01/18 11:32 04/01/18 11:34 04/01/18 11:32 General appearance: Present: cooperative, mild distress, A&O X 3, pleasant, answers questions appropriately Exam: Gen.: Nonacute distress, alert and oriented 3 Cardiovascular: Normal S1 and S2 regular rate rhythm no murmurs rubs or gallops Skin: Normal color - Patient Status Disposition: Home Health Service Condition: Good - Discharge Instructions Instructions: Chronic Hypertension (DC) Follow Up With: Pedro Melendrez MD [Primary Care Provider] - 04/09/18 1:15 pm
--- NOTE | 2018-04-01 11:56 | Physician Discharge Referral ---
Home Health/Hosp Referral Info Transfer to: Home Health - Diagnosis (1) Headache Status: Acute (2) Hypertension Status: Acute (3) Nausea & vomiting Status: Acute - Respiratory Orders Smoking Cessation: Smoking cessation has been advised. For more information, call the [place] Tobacco Quit Line at 9-508-QRSH-NOW. - Services Needed Following services are medically necessary services: Nursing, Physical Therapy, Occupational Therapy - Transfer Medications Prescriptions: hydrALAZINE [HydrALAZINE] 100 mg PO Q8HR #90 tablet Metoprolol XL (24 HR) Succ [Toprol Xl] 25 mg PO DAILY #30 tab.er.24h Home Medications: Ranitidine HCl [Acid Field Service Specialist] 150 mg PO BID #10 tablet 03/24/18 [Rx] hydrOXYzine HCl [Hydroxyzine HCl] 25 mg PO Q6HR PRN #20 tab 03/24/18 [Rx] predniSONE [PredniSONE] 2 tab PO DAILY #6 tablet 03/24/18 [Rx] Lisinopril [Zestril] 20 mg PO DAILY #15 tablet 03/25/18 [Rx] Allopurinol [Zyloprim 100 MG] 100 mg PO DAILY 03/28/18 [History] Amitriptyline HCl 75 mg PO HS 03/28/18 [History] Atorvastatin Calcium [Lipitor] 20 mg PO HS 03/28/18 [History] Citalopram [CeleXA] 20 mg PO DAILY 03/28/18 [History] Ergocalciferol (VITAMIN D2) [Vitamin D2] 50,000 unit PO QWEEK 03/28/18 [History] Furosemide [Lasix] 40 mg PO DAILY 03/28/18 [History] Lansoprazole [Prevacid] 15 mg PO DAILY 03/28/18 [History] Lubiprostone [Amitiza] 24 mcg PO DAILY 03/28/18 [History] Potassium Chloride [K-Tab ER] 20 meq PO HS 03/28/18 [History] Pregabalin [Lyrica] 150 mg PO BID 03/28/18 [History] Metoprolol XL (24 HR) Succ [Toprol Xl] 25 mg PO DAILY #30 tab.er.24h 04/01/18 [ Rx] hydrALAZINE [HydrALAZINE] 100 mg PO Q8HR #90 tablet 04/01/18 [Rx] Allergies/Adverse Reactions: 3 Allergy/AdvReac Type Severity Reaction Status Date / Time diazepam [From Valium] AdvReac Hallucinati Verified 03/28/18 13:54 ng Certification: Further, I certify that my clinical findings support that this patient is homebound (i.e. absences from home require considerable and taxing effort and are for medical reasons or christianity services or infrequently or short duration when for other reasons) because: Homebound Reason: Patient requires assistance of a person or device to safely leave home Attestation: My signature below is to certify that this patient is under my care and that I, or nurse practitioner, or a physician's group fitness assistant department head working with me, has a face-to -face encounter with this patient.
== END 2018-04-01 12:48 | disposition home health service (06) | DRG 305 ==
LOC: 2NNU 13:47 → EMEROOARM 13:47 → SUATTDRO 18:33 → 2NNU 20:28 → SUATTDRO 03-31 15:30
PROVIDERS: ADMIT Internal Medicine; ATTEND Hospitalist

== ENCOUNTER 2018-04-24 00:12 | Observation (INO) ==
[2018-04-24] MEDS ORDERED: 0.9 % Sodium Chloride 1,000 ML IVC ONE (00:21)
[2018-04-24] MEDS ORDERED: Ondansetron 4 MG/2 ML VIAL IVP ONE (00:21)
[2018-04-24] MEDS ORDERED: Isovue-370 500 ML INFUS..BTL IV ONE (00:22)
--- NOTE | 2018-04-24 00:33 | Urgent Care Visit Notes ---
Disposition Forms: ED Satisfaction Letter History of Present Illness - General Chief Complaint: ED Syncope Stated Complaint: syncope Time Seen by Provider: 04/24/18 00:19 Source: patient, other (EMS) Mode of arrival: other (EMS) Limitations: no limitations Nursing Notes Reviewed: Yes Vital Signs Reviewed: Yes - History of Present Illness HPI Narrative: 72-year-old female with history of hypertension, arrives to the emergency department with complaint of syncopal episode. The patient states that over the course the past few days she has felt nauseated and had a couple episodes of blood in her stool as well as one episode of nausea and vomiting today. The patient states that she was in the shower just prior to arrival and had a very large bowel movement that was diarrhea with a large amount of blood. The patient states she syncopized and struck the ground with her head. This was witnessed by the patient's . The patient immediately woke up. No seizure-like activity. The patient is continued to complain of some abdominal discomfort, nausea. She has a headache upon arrival to the emergency department without any other signs of trauma. Patient denies any other complaints at this time. She does admit that she is on anticoagulant use but is unsure of what the name is. The patient denies any chest pain, difficulty breathing, unilateral excellent, hemoptysis, paresthesias - Related Data Home Medications Medication Instructions Recorded Confirmed Allopurinol [Zyloprim 100 MG] 100 mg PO DAILY 03/28/18 03/28/18 Amitriptyline HCl 75 mg PO HS 03/28/18 03/28/18 Atorvastatin Calcium [Lipitor] 20 mg PO HS 03/28/18 03/28/18 Citalopram [CeleXA] 20 mg PO DAILY 03/28/18 03/28/18 Ergocalciferol (VITAMIN D2) 50,000 unit PO QWEEK 03/28/18 03/28/18 [Vitamin D2] Furosemide [Lasix] 40 mg PO DAILY 03/28/18 03/28/18 Lansoprazole [Prevacid] 15 mg PO DAILY 03/28/18 03/28/18 Lubiprostone [Amitiza] 24 mcg PO DAILY 03/28/18 03/28/18 Potassium Chloride [K-Tab ER] 20 meq PO HS 03/28/18 03/28/18 Pregabalin [Lyrica] 150 mg PO BID 03/28/18 03/28/18 Previous Rx's Medication Instructions Recorded Ranitidine HCl [Acid Armhole Baster Hand] 150 mg PO BID #10 tablet 03/24/18 hydrOXYzine HCl [Hydroxyzine HCl] 25 mg PO Q6HR PRN #20 tab 03/24/18 predniSONE [PredniSONE] 2 tab PO DAILY #6 tablet 03/24/18 Lisinopril [Zestril] 20 mg PO DAILY #15 tablet 03/25/18 Metoprolol XL (24 HR) Succ [Toprol 25 mg PO DAILY #30 tab.er.24h 04/01/18 Xl] hydrALAZINE [HydrALAZINE] 100 mg PO Q8HR #90 tablet 04/01/18 Allergies Allergy/AdvReac Type Severity Reaction Status Date / Time diazepam [From Valium] AdvReac Hallucinati Verified 03/28/18 13:54 ng All systems ED: reviewed and negative except as stated. Constitutional: Denies: fever, chills, weakness Cardiovascular: Denies: chest pain Respiratory: Denies: dyspnea Gastrointestinal: Reports: abdominal pain, nausea, vomiting, diarrhea, hematochezia. Denies: constipation, hematemesis, melena Genitourinary: Denies: urgency, dysuria Musculoskeletal: Denies: back pain, neck pain, arthralgia, myalgia Integumentary: Denies: rash Neurological: Reports: headache. Denies: weakness, numbness, paresthesias, confusion Past Medical History - Past Medical History Attestation: Yes The following information was validated with the patient. Source: patient, old records reviewed Medical history: Reports: asthma, other Surgical history: Reports: non-contributory Psychiatric history: Reports: no psych history SHIP SCALER history: Reports: no SHIP SCALER history - Social History Smoking Status: Never smoker Smokeless Tobacco Status: No Alcohol use: Reports: none Drug use: Reports: none Physical Exam - General Limitations: no limitations General appearance: alert, in no apparent distress Course Vital Signs Temperature 98.5 F 04/24/18 00:16 Pulse Rate 55 04/24/18 00:16 Respiratory Rate 20 04/24/18 00:16 Blood Pressure 118/52 04/24/18 00:16 O2 Sat by Pulse Oximetry 99 04/24/18 00:16 Temperature 98.5 F 04/24/18 00:16 Pulse Rate 55 04/24/18 00:16 Respiratory Rate 20 04/24/18 00:16 Blood Pressure 118/52 04/24/18 00:16 O2 Sat by Pulse Oximetry 99 04/24/18 00:16 Oxygen Delivery Oxygen Delivery Room Air
--- NOTE | 2018-04-24 00:37 | Emergency Department Note ---
Disposition Clinical Impression: Acute kidney injury superimposed on CKD Syncope Qualifiers: Syncope type: unspecified Qualified Code(s): R55 - Syncope and collapse UTI (urinary tract infection) Qualifiers: Urinary tract infection type: acute cystitis Hematuria presence: without hematuria Qualified Code(s): N30.00 - Acute cystitis without hematuria Disposition: Admitted As Inpatient Condition: Undetermined Referrals: Pedro Melendrez MD [Primary Care Provider] - Forms: ED Satisfaction Letter Time of Disposition: 03:16 Syncope HPI - General Chief Complaint: ED Syncope Stated Complaint: syncope Time Seen by Provider: 04/24/18 00:19 Source: patient, EMS Mode of arrival: EMS Limitations: no limitations Nursing Notes Reviewed: Yes Vital Signs Reviewed: Yes - History of Present Illness HPI Narrative: 72-year-old female with history of hypertension, arrives to the emergency department with complaint of syncopal episode. The patient states that over the course the past few days she has felt nauseated and had a couple episodes of blood in her stool as well as one episode of nausea and vomiting today. The patient states that she was in the shower just prior to arrival and had a very large bowel movement that was diarrhea with a large amount of blood. The patient states she syncopized and struck the ground with her head. This was witnessed by the patient's . The patient immediately woke up. No seizure-like activity. The patient is continued to complain of some abdominal discomfort, nausea. She has a headache upon arrival to the emergency department without any other signs of trauma. Patient denies any other complaints at this time. She does admit that she is on anticoagulant use but is unsure of what the name is. The patient denies any chest pain, difficulty breathing, unilateral excellent, hemoptysis, paresthesias - Related Data Home Medications Medication Instructions Recorded Confirmed Allopurinol [Zyloprim 100 MG] 100 mg PO DAILY 03/28/18 03/28/18 Amitriptyline HCl 75 mg PO HS 03/28/18 03/28/18 Atorvastatin Calcium [Lipitor] 20 mg PO HS 03/28/18 03/28/18 Citalopram [CeleXA] 20 mg PO DAILY 03/28/18 03/28/18 Ergocalciferol (VITAMIN D2) 50,000 unit PO QWEEK 03/28/18 03/28/18 [Vitamin D2] Furosemide [Lasix] 40 mg PO DAILY 03/28/18 03/28/18 Lansoprazole [Prevacid] 15 mg PO DAILY 03/28/18 03/28/18 Lubiprostone [Amitiza] 24 mcg PO DAILY 03/28/18 03/28/18 Potassium Chloride [K-Tab ER] 20 meq PO HS 03/28/18 03/28/18 Pregabalin [Lyrica] 150 mg PO BID 03/28/18 03/28/18 Previous Rx's Medication Instructions Recorded Ranitidine HCl [Acid Hydrogen Plant Operator] 150 mg PO BID #10 tablet 03/24/18 hydrOXYzine HCl [Hydroxyzine HCl] 25 mg PO Q6HR PRN #20 tab 03/24/18 predniSONE [PredniSONE] 2 tab PO DAILY #6 tablet 03/24/18 Lisinopril [Zestril] 20 mg PO DAILY #15 tablet 03/25/18 Metoprolol XL (24 HR) Succ [Toprol 25 mg PO DAILY #30 tab.er.24h 04/01/18 Xl] hydrALAZINE [HydrALAZINE] 100 mg PO Q8HR #90 tablet 04/01/18 Allergies Allergy/AdvReac Type Severity Reaction Status Date / Time diazepam [From Valium] AdvReac Hallucinati Verified 03/28/18 13:54 ng All systems ED: reviewed and negative except as stated. Constitutional: Denies: fever, chills, weakness ENT ED: Denies: congestion Cardiovascular: Reports: syncope. Denies: chest pain, dyspnea on exertion, edema Respiratory: Denies: cough, dyspnea, sputum production Gastrointestinal: Reports: abdominal pain, nausea, vomiting, diarrhea, hematochezia. Denies: constipation, hematemesis, melena Genitourinary: Denies: urgency, dysuria Musculoskeletal: Denies: back pain, neck pain Integumentary: Denies: rash Neurological: Reports: headache. Denies: weakness, numbness, paresthesias, confusion Past Medical History - Past Medical History Attestation: Yes The following information was validated with the patient. Source: patient, old records reviewed Medical history: Reports: asthma, other Surgical history: Reports: non-contributory Psychiatric history: Reports: no psych history RV DETAILER history: Reports: no RV DETAILER history - Social History Smoking Status: Never smoker Smokeless Tobacco Status: No Alcohol use: Reports: none Drug use: Reports: none Physical Exam - General Limitations: no limitations General appearance: alert, in no apparent distress - Head Head exam: atraumatic, normocephalic, normal inspection - Eye Eye exam: Present: normal appearance, PERRL, EOMI - ENT ENT exam: normal exam, normal oropharynx, mucous membranes moist - Neck Neck exam: Present: normal inspection, full ROM, trachea midline - Chest Chest inspection: Present: normal inspection, symmetric chest wall rise - Respiratory Respiratory exam: Present: normal lung sounds bilaterally - Cardiovascular Cardiovascular exam: Present: normal rhythm, bradycardia, normal heart sounds - Abdominal Exam Abdominal exam: Present: soft, tenderness, scar. Absent: distention, guarding, rebound, rigidity, heel tap sign, Dow's sign, Rovsing's sign, tenderness at McBurney's Point, pulsatile mass, hernia - Extremities Exam Extremities exam: Present: normal inspection, full ROM. Absent: tenderness, pedal edema - Neurological Exam Neurological exam: Present: alert, oriented X3 - Skin Skin exam: Present: warm, dry, intact, normal color Course Vital Signs Temperature 98.5 F 04/24/18 00:16 Pulse Rate 55 04/24/18 00:16 Respiratory Rate 20 04/24/18 00:16 Blood Pressure 118/52 04/24/18 00:16 O2 Sat by Pulse Oximetry 99 04/24/18 00:16 Temperature 98.5 F 04/24/18 00:16 Pulse Rate 59 04/24/18 01:37 Respiratory Rate 18 04/24/18 01:37 Blood Pressure 122/52 04/24/18 01:37 O2 Sat by Pulse Oximetry 95 04/24/18 01:37 Oxygen Delivery Oxygen Delivery Room Air Syncope - [facility] Narrative Medical decision making narrative: Patient's work-up demonstrates findings to for acute kidney injury, as well as a UTI. The patient was given IV antibiotics here in the emergency department. The patient will be admitted to the hospital at this time the patient's syncopal episode and fall. Patient was made aware and agrees to plan. No further questions or concerns. Head CT,, cervical spine CT, abdominal CT, reveals no acute process. Patient will be admitted to the hospital at this time. No further questions or concerns noted. Patient was accepted by Dr. Us. - Lab Data Lab results reviewed: Yes I reviewed the patient's lab results. Result diagrams: 04/24/18 00:59 04/24/18 00:59 Lab Results 04/24/18 04/24/18 04/24/18 Range/Units 00:59 00:59 00:59 WBC 10.7 (4.3-11.1) K/mcL RBC 4.74 (3.82-4.97) M/mcL Hgb 13.9 (11.5-15.4) g/dL Hct 43.4 (35.3-44.9) % MCV 91.6 (83.0-100.0) fL MCH 29.3 (28.0-33.3) pg MCHC 32.0 (31.6-35.5) g/dL RDW 14.8 H (11.5-14.5) % Plt Count 275 (140-400) K/mcL MPV 10.3 (9.4-12.4) fL Immature Gran % 0.4 (0-4) % Seg Neutrophils % 76.5 % Lymphocytes % 14.5 % Monocytes % 7.0 % Eosinophils % 0.9 % Basophils % 0.7 % Neutrophils # 8.2 (1.6-8.9) K/mcL Lymphocytes # 1.6 (0.6-4.6) K/mcL Monocytes # 0.8 (0.0-1.3) K/mcL Eosinophils # 0.1 (0.0-0.6) K/mcL Basophils # 0.1 (0.0-0.2) K/mcL Sodium 139 (136-145) mEq/L Potassium 3.7 (3.5-5.1) mEq/L Chloride 104 (98-107) mEq/L Carbon Dioxide 22 L (23-29) mEq/L BUN 22 (8-23) mg/dL Creatinine 1.71 H (0.60-1.20) mg/dL Est GFR ( Amer) 36 L (> 60) Est GFR (Non-Af Amer) 29 L (> 60) BUN/Creatinine Ratio 13 (6-26) Glucose 128 H (70-105) mg/dL Calculated Osmolality 293 (280-300) Calcium 9.5 (8.6-10.3) mg/dL Total Bilirubin (0.3-1.0) mg/dL Direct Bilirubin (0.0-0.2) mg/dL Indirect Bilirubin (0.0-1.2) mg/dL AST (13-39) Units/L ALT (7-52) Units/L Alkaline Phosphatase (34-104) Units/L Troponin I < 0.03 (< 0.04) ng/mL Serum Total Protein (6.4-8.9) g/dL Albumin (3.5-5.7) g/dL Globulin (2.4-3.5) g/dL Albumin/Globulin Ratio (1.1-2.2) Urine Color (Yellow) Urine Clarity (Clear) Urine pH (5.0-8.0) pH Units Ur Specific [place] (1.010-1.025) Urine Protein (Neg-Trace) mg/dL Urine Glucose (UA) (Normal) mg/dL Urine Ketones (Negative) mg/dL Urine Blood (Negative) Urine Nitrite (Negative) Urine Bilirubin (Negative) Urine Urobilinogen (Normal) mg/dL Ur Leukocyte Esterase (Negative) Urine Microscopic RBC (0-3) per hpf Urine Microscopic WBC (0-3) per hpf Ur Squamous Epith Cells (None-Few) per lpf Calcium Oxalate Crystal Urine Bacteria (None-Few) per hpf Hyaline Casts (None-Few) per lpf Urine Mucus (Few) Urine Yeast (None Seen) per hpf Ur Culture Indicated? (NO) Stool Occult Bld Scrn (Negative) Blood Type A POSITIVE Antibody Screen NEGATIVE 04/24/18 04/24/18 04/24/18 Range/Units 00:59 01:24 02:03 WBC (4.3-11.1) K/mcL RBC (3.82-4.97) M/mcL Hgb (11.5-15.4) g/dL Hct (35.3-44.9) % MCV (83.0-100.0) fL MCH (28.0-33.3) pg MCHC (31.6-35.5) g/dL RDW (11.5-14.5) % Plt Count (140-400) K/mcL MPV (9.4-12.4) fL Immature Gran % (0-4) % Seg Neutrophils % % Lymphocytes % % Monocytes % % Eosinophils % % Basophils % % Neutrophils # (1.6-8.9) K/mcL Lymphocytes # (0.6-4.6) K/mcL Monocytes # (0.0-1.3) K/mcL Eosinophils # (0.0-0.6) K/mcL Basophils # (0.0-0.2) K/mcL Sodium (136-145) mEq/L Potassium (3.5-5.1) mEq/L Chloride (98-107) mEq/L Carbon Dioxide (23-29) mEq/L BUN (8-23) mg/dL Creatinine (0.60-1.20) mg/dL Est GFR ( Amer) (> 60) Est GFR (Non-Af Amer) (> 60) BUN/Creatinine Ratio (6-26) Glucose (70-105) mg/dL Calculated Osmolality (280-300) Calcium (8.6-10.3) mg/dL Total Bilirubin 0.4 (0.3-1.0) mg/dL Direct Bilirubin 0.1 (0.0-0.2) mg/dL Indirect Bilirubin 0.3 (0.0-1.2) mg/dL AST 21 (13-39) Units/L ALT 15 (7-52) Units/L Alkaline Phosphatase 80 (34-104) Units/L Troponin I (< 0.04) ng/mL Serum Total Protein 7.0 (6.4-8.9) g/dL Albumin 4.2 (3.5-5.7) g/dL Globulin 2.8 (2.4-3.5) g/dL Albumin/Globulin Ratio 1.5 (1.1-2.2) Urine Color Dark Yellow (Yellow) Urine Clarity Cloudy A (Clear) Urine pH 6.0 (5.0-8.0) pH Units Ur Specific [place] 1.009 L (1.010-1.025) Urine Protein 100 H (Neg-Trace) mg/dL Urine Glucose (UA) Normal (Normal) mg/dL Urine Ketones Trace H (Negative) mg/dL Urine Blood Negative (Negative) Urine Nitrite Negative (Negative) Urine Bilirubin Moderate H (Negative) Urine Urobilinogen Normal (Normal) mg/dL Ur Leukocyte Esterase Small H (Negative) Urine Microscopic RBC 0-3 (0-3) per hpf Urine Microscopic WBC 30-50 H (0-3) per hpf Ur Squamous Epith Cells Many H (None-Few) per lpf Calcium Oxalate Crystal Present Urine Bacteria Moderate H (None-Few) per hpf Hyaline Casts Many H (None-Few) per lpf Urine Mucus Many H (Few) Urine Yeast Moderate H (None Seen) per hpf Ur Culture Indicated? NO. A (NO) Stool Occult Bld Scrn Negative (Negative) Blood Type Antibody Screen - Radiology Data Radiology results reviewed: Yes I reviewed the patient's radiology results. Head CT 04/24/18 00:20 IMPRESSION: No acute intracranial abnormality. D/ / Tigre Steele MD / Tigre Steele MD Interpreting Provider: Tigre Steele MD Cervical Spine CT 04/24/18 00:21 IMPRESSION: No acute abnormality of the cervical spine. D/ / Tigre Steele MD / Tigre Steele MD Interpreting Provider: Tigre Steele MD Abdomen/Pelvis CT 04/24/18 00:22 IMPRESSION: No acute process identified. D/ / Tigre Steele MD / Tigre Steele MD Interpreting Provider: Tigre Steele MD Chest X-Ray 04/24/18 00:51 IMPRESSION: Negative portable chest. D/ / Tigre Steele MD / Tigre Steele MD Interpreting Provider: Tigre Steele MD - EKG Data EKG attestation: Yes I reviewed and interpreted this EKG. EKG results narrative: Heart rate 51 beats for minute. Normal sinus bradycardia. No ST elevation or ST depression noted. EKG similar in appearance to EKG from 03/28/2018. No acute changes noted with the exception of bradycardia.
--- NOTE | 2018-04-24 01:04 | Emergency Department Note ---
Disposition Clinical Impression: Acute kidney injury superimposed on CKD Syncope Qualifiers: Syncope type: unspecified Qualified Code(s): R55 - Syncope and collapse UTI (urinary tract infection) Qualifiers: Urinary tract infection type: acute cystitis Hematuria presence: without hematuria Qualified Code(s): N30.00 - Acute cystitis without hematuria Disposition: Admitted As Inpatient Condition: Undetermined Referrals: Pedro Melendrez MD [Primary Care Provider] - Forms: ED Satisfaction Letter Syncope HPI - General Chief Complaint: ED Syncope Stated Complaint: syncope Time Seen by Provider: 04/24/18 00:19 Source: patient, EMS Mode of arrival: EMS Limitations: no limitations Vital Signs Reviewed: Yes - History of Present Illness HPI Narrative: The patient is a 72 year old female brought in by EMS for a syncopal episode. Per 's report, patient was getting out of the shower when she got the sudden urge to defecate. Patient immediately set down on the toilet and had an episode bloody watery diarrhea. She began to feel light headed and called for her at that time. helped the patient to her feet. He went to grab her walker when he says she became pale and fell backwards striking a fan and stepping stool on her way down. Patient did strike her head in the process. The patient immediately came to upon hitting the ground. EMS was called her systolic blood pressure was in the 90s for them and HR in the 50s. EMS started the patient on a 500 ml of Normal Saline. At present patient is complaining of pain along the occipital region of her head, neck, and back. Patient also notes some left-sided chest pressure that radiates around to the left lateral ribs. She denies any exacerbating and alleviating factors. Patient states she had bloody bowel movement yesterday as well as nausea, and a single episode of vomiting. denies any seizure like activity, bowel or bladder incontinence. - Related Data Home Medications Medication Instructions Recorded Confirmed Allopurinol [Zyloprim 100 MG] 100 mg PO DAILY 03/28/18 03/28/18 Amitriptyline HCl 75 mg PO HS 03/28/18 03/28/18 Atorvastatin Calcium [Lipitor] 20 mg PO HS 03/28/18 03/28/18 Citalopram [CeleXA] 20 mg PO DAILY 03/28/18 03/28/18 Ergocalciferol (VITAMIN D2) 50,000 unit PO QWEEK 03/28/18 03/28/18 [Vitamin D2] Furosemide [Lasix] 40 mg PO DAILY 03/28/18 03/28/18 Lansoprazole [Prevacid] 15 mg PO DAILY 03/28/18 03/28/18 Lubiprostone [Amitiza] 24 mcg PO DAILY 03/28/18 03/28/18 Potassium Chloride [K-Tab ER] 20 meq PO HS 03/28/18 03/28/18 Pregabalin [Lyrica] 150 mg PO BID 03/28/18 03/28/18 Previous Rx's Medication Instructions Recorded Ranitidine HCl [Acid Dental Assistant Medical Assistant] 150 mg PO BID #10 tablet 03/24/18 hydrOXYzine HCl [Hydroxyzine HCl] 25 mg PO Q6HR PRN #20 tab 03/24/18 predniSONE [PredniSONE] 2 tab PO DAILY #6 tablet 03/24/18 Lisinopril [Zestril] 20 mg PO DAILY #15 tablet 03/25/18 Metoprolol XL (24 HR) Succ [Toprol 25 mg PO DAILY #30 tab.er.24h 04/01/18 Xl] hydrALAZINE [HydrALAZINE] 100 mg PO Q8HR #90 tablet 04/01/18 Allergies Allergy/AdvReac Type Severity Reaction Status Date / Time diazepam [From Valium] AdvReac Hallucinati Verified 03/28/18 13:54 ng Constitutional: Denies: fever, chills, weakness ENT ED: Denies: congestion Cardiovascular: Reports: chest pain, syncope. Denies: dyspnea on exertion, edema Respiratory: Denies: cough, dyspnea, sputum production Gastrointestinal: Reports: abdominal pain, nausea, vomiting, diarrhea, hematochezia. Denies: constipation, hematemesis, melena Genitourinary: Denies: urgency, dysuria Musculoskeletal: Denies: back pain, neck pain Integumentary: Denies: rash Neurological: Reports: headache. Denies: weakness, numbness, paresthesias, confusion Past Medical History - Past Medical History Medical history: Reports: asthma, other Surgical history: Reports: non-contributory Psychiatric history: Reports: no psych history METEOROLOGY FACULTY MEMBER history: Reports: no METEOROLOGY FACULTY MEMBER history - Social History Smoking Status: Never smoker Smokeless Tobacco Status: No Alcohol use: Reports: none Drug use: Reports: none Physical Exam - General Limitations: no limitations General appearance: alert, in no apparent distress - Head Head exam: atraumatic, normocephalic, normal inspection - Expanded Head Exam Head exam physicial: Absent: hematoma, raccoon eyes, Chavis's sign - Eye Eye exam: Present: normal appearance. Absent: scleral icterus, conjunctival injection - ENT ENT exam: mucous membranes moist, normal external ear exam - Neck Neck exam: Present: normal inspection, full ROM, trachea midline. Absent: tenderness - Chest Chest inspection: Present: normal inspection, symmetric chest wall rise - Respiratory Respiratory exam: Present: normal lung sounds bilaterally. Absent: respiratory distress, wheezes - Cardiovascular Cardiovascular exam: Present: regular rate, normal rhythm, normal heart sounds. Absent: systolic murmur, diastolic murmur, rubs, gallop - Abdominal Exam Abdominal exam: Present: soft, tenderness, normal bowel sounds. Absent: distention, guarding, rebound, rigidity - Rectal Exam Event Decorator And Designer present during exam: Yes Rectal exam: Present: normal rectal tone, other (brown stool). Absent: decreased rectal tone, black stool, bloody stool, hemorrhoids - Extremities Exam Extremities exam: Present: normal inspection, full ROM. Absent: pedal edema - Back Exam Back exam: Present: tenderness (midline tenderness overlying the thoracic spine) , other (small linear abrasion overlying the lower left flank. There is no active bleeding. No surrounding erythema, no signs of infection) - Neurological Exam Neurological exam: Present: alert, other (no gross neuro deficits) - Psychiatric Psychiatric exam: Present: normal affect, normal mood - Skin Skin exam: Present: warm, dry, intact Course Course Narrative: Patient is a 72 year old female that presents to the ED for syncopal episode, bloody diarrhea, and chest pain. CBC, BMP, hepatic panel, Troponin, type and screen, UA, hemoccult, chest X-ray, CT abdomen/pelvis, CT C-spine, CT head and EKG were ordered. Vital Signs Temperature 98.5 F 04/24/18 00:16 Pulse Rate 55 04/24/18 00:16 Respiratory Rate 20 04/24/18 00:16 Blood Pressure 118/52 04/24/18 00:16 O2 Sat by Pulse Oximetry 99 04/24/18 00:16 Temperature 98.5 F 04/24/18 00:16 Pulse Rate 59 04/24/18 01:37 Respiratory Rate 18 04/24/18 01:37 Blood Pressure 122/52 04/24/18 01:37 O2 Sat by Pulse Oximetry 95 04/24/18 01:37 Oxygen Delivery Oxygen Delivery Room Air Syncope - MDM Narrative Medical decision making narrative: CBC, BMP, hepatic panel showed no significant abnormality warranting intervention at this time. Patient UA showed evidence of UTI. Patient was given IV Rocephin in the ED. Patient hemoccult was guiuac negative. Troponin and EKG showed no evidence of an acute ischemic process. Patient Creatinine is elevated demonstrating an acute kidney injury which patient recieved 1 L of Normal saline in the ED. Chest X-ray, CT abdomen/pelvic, CT c-sine, and CT head were all negative for an acute process. Labs and imaging were discussed with the patient and family. Patient will be admitted for observation. Case discussed with Dr. Us who agreed to admit the patient to his service. - Lab Data Result diagrams: 04/24/18 00:59 04/24/18 00:59 Lab Results 04/24/18 04/24/18 04/24/18 Range/Units 00:59 00:59 00:59 WBC 10.7 (4.3-11.1) K/mcL RBC 4.74 (3.82-4.97) M/mcL Hgb 13.9 (11.5-15.4) g/dL Hct 43.4 (35.3-44.9) % MCV 91.6 (83.0-100.0) fL MCH 29.3 (28.0-33.3) pg MCHC 32.0 (31.6-35.5) g/dL RDW 14.8 H (11.5-14.5) % Plt Count 275 (140-400) K/mcL MPV 10.3 (9.4-12.4) fL Immature Gran % 0.4 (0-4) % Seg Neutrophils % 76.5 % Lymphocytes % 14.5 % Monocytes % 7.0 % Eosinophils % 0.9 % Basophils % 0.7 % Neutrophils # 8.2 (1.6-8.9) K/mcL Lymphocytes # 1.6 (0.6-4.6) K/mcL Monocytes # 0.8 (0.0-1.3) K/mcL Eosinophils # 0.1 (0.0-0.6) K/mcL Basophils # 0.1 (0.0-0.2) K/mcL Sodium 139 (136-145) mEq/L Potassium 3.7 (3.5-5.1) mEq/L Chloride 104 (98-107) mEq/L Carbon Dioxide 22 L (23-29) mEq/L BUN 22 (8-23) mg/dL Creatinine 1.71 H (0.60-1.20) mg/dL Est GFR ( Amer) 36 L (> 60) Est GFR (Non-Af Amer) 29 L (> 60) BUN/Creatinine Ratio 13 (6-26) Glucose 128 H (70-105) mg/dL Calculated Osmolality 293 (280-300) Calcium 9.5 (8.6-10.3) mg/dL Total Bilirubin (0.3-1.0) mg/dL Direct Bilirubin (0.0-0.2) mg/dL Indirect Bilirubin (0.0-1.2) mg/dL AST (13-39) Units/L ALT (7-52) Units/L Alkaline Phosphatase (34-104) Units/L Troponin I < 0.03 (< 0.04) ng/mL Serum Total Protein (6.4-8.9) g/dL Albumin (3.5-5.7) g/dL Globulin (2.4-3.5) g/dL Albumin/Globulin Ratio (1.1-2.2) Urine Color (Yellow) Urine Clarity (Clear) Urine pH (5.0-8.0) pH Units Ur Specific [place] (1.010-1.025) Urine Protein (Neg-Trace) mg/dL Urine Glucose (UA) (Normal) mg/dL Urine Ketones (Negative) mg/dL Urine Blood (Negative) Urine Nitrite (Negative) Urine Bilirubin (Negative) Urine Urobilinogen (Normal) mg/dL Ur Leukocyte Esterase (Negative) Urine Microscopic RBC (0-3) per hpf Urine Microscopic WBC (0-3) per hpf Ur Squamous Epith Cells (None-Few) per lpf Calcium Oxalate Crystal Urine Bacteria (None-Few) per hpf Hyaline Casts (None-Few) per lpf Urine Mucus (Few) Urine Yeast (None Seen) per hpf Ur Culture Indicated? (NO) Stool Occult Bld Scrn (Negative) Blood Type A POSITIVE Antibody Screen NEGATIVE 04/24/18 04/24/18 04/24/18 Range/Units 00:59 01:24 02:03 WBC (4.3-11.1) K/mcL RBC (3.82-4.97) M/mcL Hgb (11.5-15.4) g/dL Hct (35.3-44.9) % MCV (83.0-100.0) fL MCH (28.0-33.3) pg MCHC (31.6-35.5) g/dL RDW (11.5-14.5) % Plt Count (140-400) K/mcL MPV (9.4-12.4) fL Immature Gran % (0-4) % Seg Neutrophils % % Lymphocytes % % Monocytes % % Eosinophils % % Basophils % % Neutrophils # (1.6-8.9) K/mcL Lymphocytes # (0.6-4.6) K/mcL Monocytes # (0.0-1.3) K/mcL Eosinophils # (0.0-0.6) K/mcL Basophils # (0.0-0.2) K/mcL Sodium (136-145) mEq/L Potassium (3.5-5.1) mEq/L Chloride (98-107) mEq/L Carbon Dioxide (23-29) mEq/L BUN (8-23) mg/dL Creatinine (0.60-1.20) mg/dL Est GFR ( Amer) (> 60) Est GFR (Non-Af Amer) (> 60) BUN/Creatinine Ratio (6-26) Glucose (70-105) mg/dL Calculated Osmolality (280-300) Calcium (8.6-10.3) mg/dL Total Bilirubin 0.4 (0.3-1.0) mg/dL Direct Bilirubin 0.1 (0.0-0.2) mg/dL Indirect Bilirubin 0.3 (0.0-1.2) mg/dL AST 21 (13-39) Units/L ALT 15 (7-52) Units/L Alkaline Phosphatase 80 (34-104) Units/L Troponin I (< 0.04) ng/mL Serum Total Protein 7.0 (6.4-8.9) g/dL Albumin 4.2 (3.5-5.7) g/dL Globulin 2.8 (2.4-3.5) g/dL Albumin/Globulin Ratio 1.5 (1.1-2.2) Urine Color Dark Yellow (Yellow) Urine Clarity Cloudy A (Clear) Urine pH 6.0 (5.0-8.0) pH Units Ur Specific [place] 1.009 L (1.010-1.025) Urine Protein 100 H (Neg-Trace) mg/dL Urine Glucose (UA) Normal (Normal) mg/dL Urine Ketones Trace H (Negative) mg/dL Urine Blood Negative (Negative) Urine Nitrite Negative (Negative) Urine Bilirubin Moderate H (Negative) Urine Urobilinogen Normal (Normal) mg/dL Ur Leukocyte Esterase Small H (Negative) Urine Microscopic RBC 0-3 (0-3) per hpf Urine Microscopic WBC 30-50 H (0-3) per hpf Ur Squamous Epith Cells Many H (None-Few) per lpf Calcium Oxalate Crystal Present Urine Bacteria Moderate H (None-Few) per hpf Hyaline Casts Many H (None-Few) per lpf Urine Mucus Many H (Few) Urine Yeast Moderate H (None Seen) per hpf Ur Culture Indicated? NO. A (NO) Stool Occult Bld Scrn Negative (Negative) Blood Type Antibody Screen
[2018-04-24 01:14] LABS: Basophils # 0.1 K/mcL (0.0-0.2); Basophils % 0.7 %; Eosinophils # 0.1 K/mcL (0.0-0.6); Eosinophils % 0.9 %; Hematocrit 43.4 % (35.3-44.9); Hemoglobin 13.9 g/dL (11.5-15.4); Immature Granulocytes % 0.4 % (0-4); Lymphocytes # 1.6 K/mcL (0.6-4.6); Lymphocytes % 14.5 %; Mean Corpuscular Hemoglobin 29.3 pg (28.0-33.3); Mean Corpuscular Volume 91.6 fL (83.0-100.0); Mean Platelet Volume 10.3 fL (9.4-12.4); Monocytes # 0.8 K/mcL (0.0-1.3); Neutrophils # 8.2 K/mcL (1.6-8.9); Platelet Count 275 K/mcL (140-400); Red Blood Count 4.74 M/mcL (3.82-4.97); Red Cell Distribution Width 14.8 % (11.5-14.5); Segmented Neutrophils % 76.5 %
[2018-04-24 01:31] LABS: Albumin 4.2 g/dL (3.5-5.7); Albumin/Globulin Ratio 1.5 (1.1-2.2); Bilirubin,Direct 0.1 mg/dL (0.0-0.2); Bilirubin,Indirect 0.3 mg/dL (0.0-1.2); Bilirubin,Total 0.4 mg/dL (0.3-1.0); Globulin 2.8 g/dL (2.4-3.5)
[2018-04-24 01:33] LABS: Bilirubin,Urine Moderate (Negative); Blood,Urine Negative (Negative); Clarity,Urine Cloudy (Clear); Color,Urine Dark Yellow (Yellow); Glucose,Urine (UA) Normal (Normal); Ketones,Urine Trace mg/dL (Negative); Leukocyte Esterase,Urine Small (Negative); Nitrite,Urine Negative (Negative); Protein,Urine 100 mg/dL (Neg-Trace); Specific Gravity,Urine 1.009 (1.010-1.025); Urobilinogen,Urine Normal (Normal)
[2018-04-24 01:33] LABS: BUN/Creatinine Ratio 13 (6-26); Blood Urea Nitrogen 22 mg/dL (8-23); Calcium 9.5 mg/dL (8.6-10.3); Carbon Dioxide 22 mEq/L (23-29); Chloride 104 mEq/L (98-107); Glucose 128 mg/dL (70-105); Osmolality,Calculated 293 (280-300); Potassium 3.7 mEq/L (3.5-5.1); Sodium 139 mEq/L (136-145); eGFR For Non-African Americans 29 (> 60)
[2018-04-24 01:34] LABS: Troponin I < 0.03 ng/mL (< 0.04)
[2018-04-24 01:36] LABS: Squamous Epithelial Cell,Urine Many per lpf (None-Few); WBC,Urine 30-50 per hpf (0-3)
[2018-04-24 01:47] LABS: Bacteria,Urine Moderate per hpf (None-Few); Calcium Oxalate Crystals,Urine Present; Hyaline Casts,Urine Many per lpf (None-Few); Mucus,Urine Many (Few); RBC,Urine 0-3 per hpf (0-3); Yeast,Urine Moderate per hpf (None Seen)
[2018-04-24] MEDS ORDERED: cefTRIAXone 1,000 MG in Water for inj. (sterile) 20 ML 10 ML IVP ONE (01:56)
--- NOTE | 2018-04-24 03:19 | Emergency Department Note ---
Disposition Clinical Impression: Acute kidney injury superimposed on CKD Syncope Qualifiers: Syncope type: unspecified Qualified Code(s): R55 - Syncope and collapse UTI (urinary tract infection) Qualifiers: Urinary tract infection type: acute cystitis Hematuria presence: without hematuria Qualified Code(s): N30.00 - Acute cystitis without hematuria Disposition: Admitted As Inpatient Condition: Undetermined Referrals: Pedro Melendrez MD [Primary Care Provider] - Forms: ED Satisfaction Letter General Adult HPI - General Chief complaint: ED Syncope Stated complaint: syncope Time Seen by Provider: 04/24/18 00:19 Source: patient, EMS Mode of arrival: EMS Limitations: no limitations - History of Present Illness Pain Scale: 0 - Related Data Home Medications Medication Instructions Recorded Confirmed Allopurinol [Zyloprim 100 MG] 100 mg PO DAILY 03/28/18 03/28/18 Amitriptyline HCl 75 mg PO HS 03/28/18 03/28/18 Atorvastatin Calcium [Lipitor] 20 mg PO HS 03/28/18 03/28/18 Citalopram [CeleXA] 20 mg PO DAILY 03/28/18 03/28/18 Ergocalciferol (VITAMIN D2) 50,000 unit PO QWEEK 03/28/18 03/28/18 [Vitamin D2] Furosemide [Lasix] 40 mg PO DAILY 03/28/18 03/28/18 Lansoprazole [Prevacid] 15 mg PO DAILY 03/28/18 03/28/18 Lubiprostone [Amitiza] 24 mcg PO DAILY 03/28/18 03/28/18 Potassium Chloride [K-Tab ER] 20 meq PO HS 03/28/18 03/28/18 Pregabalin [Lyrica] 150 mg PO BID 03/28/18 03/28/18 Previous Rx's Medication Instructions Recorded Ranitidine HCl [Acid Cathode Ray Tube Assembler] 150 mg PO BID #10 tablet 03/24/18 hydrOXYzine HCl [Hydroxyzine HCl] 25 mg PO Q6HR PRN #20 tab 03/24/18 predniSONE [PredniSONE] 2 tab PO DAILY #6 tablet 03/24/18 Lisinopril [Zestril] 20 mg PO DAILY #15 tablet 03/25/18 Metoprolol XL (24 HR) Succ [Toprol 25 mg PO DAILY #30 tab.er.24h 04/01/18 Xl] hydrALAZINE [HydrALAZINE] 100 mg PO Q8HR #90 tablet 04/01/18 Allergies Allergy/AdvReac Type Severity Reaction Status Date / Time diazepam [From Valium] AdvReac Hallucinati Verified 03/28/18 13:54 ng Constitutional: Denies: fever, chills, weakness ENT ED: Denies: congestion Cardiovascular: Reports: syncope. Denies: chest pain, dyspnea on exertion, edema Respiratory: Denies: cough, dyspnea, sputum production Gastrointestinal: Reports: abdominal pain, nausea, vomiting, diarrhea, hematochezia. Denies: constipation, hematemesis, melena Genitourinary: Denies: urgency, dysuria Musculoskeletal: Denies: back pain, neck pain Integumentary: Denies: rash Neurological: Reports: headache. Denies: weakness, numbness, paresthesias, confusion Past Medical History - Past Medical History Medical history: Reports: asthma, other Surgical history: Reports: non-contributory Psychiatric history: Reports: no psych history SAMPLER TESTER history: Reports: no SAMPLER TESTER history - Social History Smoking Status: Never smoker Smokeless Tobacco Status: No Alcohol use: Reports: none Drug use: Reports: none Physical Exam - General Limitations: no limitations General appearance: alert, in no apparent distress Course Vital Signs Temperature 98.5 F 04/24/18 00:16 Pulse Rate 55 04/24/18 00:16 Respiratory Rate 20 04/24/18 00:16 Blood Pressure 118/52 04/24/18 00:16 O2 Sat by Pulse Oximetry 99 04/24/18 00:16 Temperature 98.5 F 04/24/18 00:16 Pulse Rate 59 04/24/18 01:37 Respiratory Rate 18 04/24/18 01:37 Blood Pressure 122/52 04/24/18 01:37 O2 Sat by Pulse Oximetry 95 04/24/18 01:37 Oxygen Delivery Oxygen Delivery Room Air Medical Decision Making - Lab Data Result diagrams: 04/24/18 00:59 04/24/18 00:59 Lab Results 04/24/18 04/24/18 04/24/18 Range/Units 00:59 00:59 00:59 WBC 10.7 (4.3-11.1) K/mcL RBC 4.74 (3.82-4.97) M/mcL Hgb 13.9 (11.5-15.4) g/dL Hct 43.4 (35.3-44.9) % MCV 91.6 (83.0-100.0) fL MCH 29.3 (28.0-33.3) pg MCHC 32.0 (31.6-35.5) g/dL RDW 14.8 H (11.5-14.5) % Plt Count 275 (140-400) K/mcL MPV 10.3 (9.4-12.4) fL Immature Gran % 0.4 (0-4) % Seg Neutrophils % 76.5 % Lymphocytes % 14.5 % Monocytes % 7.0 % Eosinophils % 0.9 % Basophils % 0.7 % Neutrophils # 8.2 (1.6-8.9) K/mcL Lymphocytes # 1.6 (0.6-4.6) K/mcL Monocytes # 0.8 (0.0-1.3) K/mcL Eosinophils # 0.1 (0.0-0.6) K/mcL Basophils # 0.1 (0.0-0.2) K/mcL Sodium 139 (136-145) mEq/L Potassium 3.7 (3.5-5.1) mEq/L Chloride 104 (98-107) mEq/L Carbon Dioxide 22 L (23-29) mEq/L BUN 22 (8-23) mg/dL Creatinine 1.71 H (0.60-1.20) mg/dL Est GFR ( Amer) 36 L (> 60) Est GFR (Non-Af Amer) 29 L (> 60) BUN/Creatinine Ratio 13 (6-26) Glucose 128 H (70-105) mg/dL Calculated Osmolality 293 (280-300) Calcium 9.5 (8.6-10.3) mg/dL Total Bilirubin (0.3-1.0) mg/dL Direct Bilirubin (0.0-0.2) mg/dL Indirect Bilirubin (0.0-1.2) mg/dL AST (13-39) Units/L ALT (7-52) Units/L Alkaline Phosphatase (34-104) Units/L Troponin I < 0.03 (< 0.04) ng/mL Serum Total Protein (6.4-8.9) g/dL Albumin (3.5-5.7) g/dL Globulin (2.4-3.5) g/dL Albumin/Globulin Ratio (1.1-2.2) Urine Color (Yellow) Urine Clarity (Clear) Urine pH (5.0-8.0) pH Units Ur Specific [place] (1.010-1.025) Urine Protein (Neg-Trace) mg/dL Urine Glucose (UA) (Normal) mg/dL Urine Ketones (Negative) mg/dL Urine Blood (Negative) Urine Nitrite (Negative) Urine Bilirubin (Negative) Urine Urobilinogen (Normal) mg/dL Ur Leukocyte Esterase (Negative) Urine Microscopic RBC (0-3) per hpf Urine Microscopic WBC (0-3) per hpf Ur Squamous Epith Cells (None-Few) per lpf Calcium Oxalate Crystal Urine Bacteria (None-Few) per hpf Hyaline Casts (None-Few) per lpf Urine Mucus (Few) Urine Yeast (None Seen) per hpf Ur Culture Indicated? (NO) Stool Occult Bld Scrn (Negative) Blood Type A POSITIVE Antibody Screen NEGATIVE 04/24/18 04/24/18 04/24/18 Range/Units 00:59 01:24 02:03 WBC (4.3-11.1) K/mcL RBC (3.82-4.97) M/mcL Hgb (11.5-15.4) g/dL Hct (35.3-44.9) % MCV (83.0-100.0) fL MCH (28.0-33.3) pg MCHC (31.6-35.5) g/dL RDW (11.5-14.5) % Plt Count (140-400) K/mcL MPV (9.4-12.4) fL Immature Gran % (0-4) % Seg Neutrophils % % Lymphocytes % % Monocytes % % Eosinophils % % Basophils % % Neutrophils # (1.6-8.9) K/mcL Lymphocytes # (0.6-4.6) K/mcL Monocytes # (0.0-1.3) K/mcL Eosinophils # (0.0-0.6) K/mcL Basophils # (0.0-0.2) K/mcL Sodium (136-145) mEq/L Potassium (3.5-5.1) mEq/L Chloride (98-107) mEq/L Carbon Dioxide (23-29) mEq/L BUN (8-23) mg/dL Creatinine (0.60-1.20) mg/dL Est GFR ( Amer) (> 60) Est GFR (Non-Af Amer) (> 60) BUN/Creatinine Ratio (6-26) Glucose (70-105) mg/dL Calculated Osmolality (280-300) Calcium (8.6-10.3) mg/dL Total Bilirubin 0.4 (0.3-1.0) mg/dL Direct Bilirubin 0.1 (0.0-0.2) mg/dL Indirect Bilirubin 0.3 (0.0-1.2) mg/dL AST 21 (13-39) Units/L ALT 15 (7-52) Units/L Alkaline Phosphatase 80 (34-104) Units/L Troponin I (< 0.04) ng/mL Serum Total Protein 7.0 (6.4-8.9) g/dL Albumin 4.2 (3.5-5.7) g/dL Globulin 2.8 (2.4-3.5) g/dL Albumin/Globulin Ratio 1.5 (1.1-2.2) Urine Color Dark Yellow (Yellow) Urine Clarity Cloudy A (Clear) Urine pH 6.0 (5.0-8.0) pH Units Ur Specific [place] 1.009 L (1.010-1.025) Urine Protein 100 H (Neg-Trace) mg/dL Urine Glucose (UA) Normal (Normal) mg/dL Urine Ketones Trace H (Negative) mg/dL Urine Blood Negative (Negative) Urine Nitrite Negative (Negative) Urine Bilirubin Moderate H (Negative) Urine Urobilinogen Normal (Normal) mg/dL Ur Leukocyte Esterase Small H (Negative) Urine Microscopic RBC 0-3 (0-3) per hpf Urine Microscopic WBC 30-50 H (0-3) per hpf Ur Squamous Epith Cells Many H (None-Few) per lpf Calcium Oxalate Crystal Present Urine Bacteria Moderate H (None-Few) per hpf Hyaline Casts Many H (None-Few) per lpf Urine Mucus Many H (Few) Urine Yeast Moderate H (None Seen) per hpf Ur Culture Indicated? NO. A (NO) Stool Occult Bld Scrn Negative (Negative) Blood Type Antibody Screen Attestation Statement - Attestation Attestation: I examined this patient and my medical decision-making was reviewed with the Resident Physician. I agree with the documented findings, disposition and treatment plan as described except to the extent set forth below. Patient presents to the ED after syncopal episode. Patient states she passed out after a bowel movement. Patient states she had diarrhea with some blood in it. She states she also at of vomiting today. Patient states she struck her head when she fell. Recently started on blood pressure medicine. Started lisinopril today. Patient is in no acute distress on examination. Heart regular lungs clear abdomen soft but diffusely tender. Rectal exam showed brown stool. Plan. Hemoccult negative. CBC unremarkable. She does have an acute on chronic kidney injury. She is received IV hydration. Rocephin for UTI. Admitted to medicine.
[2018-04-24] MEDS ORDERED: Naloxone 0.4 MG/ML INJ IVP PRN (07:34)
--- NOTE | 2018-04-24 08:46 | Internal Med History&Physical ---
Date of Encounter: 04/24/18 Time of Encounter: 08:00 Internal Medicine - H&P: HPI Chief complaint: Syncope Admitted From: Emergency Dept Plans for Post Hospital Care: Home History of present illness: Ms. Cotter is a 72 year old female patient with history of hypertension who presented to the ER this morning with complaints of passing out last night. She had not gotten in the shower and when she came out she had a bout of diarrhea and then she passed out. Her was with her when she passed out. She said she fell and hit her head on a metal side table. She recovered consciousness soon after. EMS was called and patient was brought here. She reports that her blood pressure at that time was very low and she could not hear her heartbeat well through a stethoscope. She feels much better now. She reports that she was started on new antihypertensive medication and what I took her first dose yesterday. She has not been having any nausea vomiting or diarrhea prior to this episode. She denies any chest pain or palpitations. No fevers or chills. She states that her thinks that he may have given her a different medication by mistake. She denies any focal weakness or numbness. She has not had any more episodes of diarrhea since coming to the ER. Past Med Surg Social Fam HX - Past Medical History Attestation: Yes The following information was validated with the patient. Source: patient Medical history: asthma, hypertension, other Additional medical history: CKD Psychiatric history: no psych history - Past Surgical History Surgical History: non-contributory, hysterectomy Additional surgical history: Bladder surgery - Social History Smoking Status: Former smoker Smokeless Tobacco Status: No Alcohol use: none Drug use: none - Family History Father Adopted: No Living Status: Cause of : Heart attack and stroke. Hx Family Cardiac Disorders: Yes (DC) Hx Family Respiratory Disorders: No Hx Family Cancer: No Hx Family GI Disorders: No Hx Family Genitourinary Disorders: No Hx Family Endocrine Disorder: No Hx Family Musculoskeletal Disorders: No Hx Family Neuromuscular Disorders: No Hx Family Neurologic Disorders: No Hx Family HEENT Disorders: No Hx Family Autoimmune Disorders: No Hx Family Reproductive Disorders: No Hx Family Psychosocial Disorders: Yes (depression) Hx Family Medical Disorders: No Internal Medicine - H&P: Meds Ranitidine HCl [Acid Pattern Puncher] 150 mg PO BID #10 tablet 03/24/18 [Rx] hydrOXYzine HCl [Hydroxyzine HCl] 25 mg PO Q6HR PRN #20 tab 03/24/18 [Rx] predniSONE [PredniSONE] 2 tab PO DAILY #6 tablet 03/24/18 [Rx] Lisinopril [Zestril] 20 mg PO DAILY #15 tablet 03/25/18 [Rx] Allopurinol [Zyloprim 100 MG] 100 mg PO DAILY 03/28/18 [History] Amitriptyline HCl 75 mg PO HS 03/28/18 [History] Atorvastatin Calcium [Lipitor] 20 mg PO HS 03/28/18 [History] Citalopram [CeleXA] 20 mg PO DAILY 03/28/18 [History] Ergocalciferol (VITAMIN D2) [Vitamin D2] 50,000 unit PO QWEEK 03/28/18 [History] Furosemide [Lasix] 40 mg PO DAILY 03/28/18 [History] Lansoprazole [Prevacid] 15 mg PO DAILY 03/28/18 [History] Lubiprostone [Amitiza] 24 mcg PO DAILY 03/28/18 [History] Potassium Chloride [K-Tab ER] 20 meq PO HS 03/28/18 [History] Pregabalin [Lyrica] 150 mg PO BID 03/28/18 [History] Metoprolol XL (24 HR) Succ [Toprol Xl] 25 mg PO DAILY #30 tab.er.24h 04/01/18 [ Rx] hydrALAZINE [HydrALAZINE] 100 mg PO Q8HR #90 tablet 04/01/18 [Rx] 3 Allergy/AdvReac Type Severity Reaction Status Date / Time diazepam [From Valium] AdvReac Hallucinati Verified 03/28/18 13:54 ng All Systems PM: A 10-system review of systems was performed and is negative for pertinent findings except as documented above in the HPI. - Constitutional Constitutional: no chills, no fever(s), no night sweats - EENT Eyes: no change in vision, no discharge, no pain, no photophobia Ears: no ear discharge, no ear pain, no tinnitus Nose, mouth and throat: no dysphagia, no nasal discharge, no neck pain, no sore throat - Cardiovascular Cardiovascular ROS IM: syncope, no chest pain, no diaphoresis, no dyspnea, no lightheadedness, no palpitations - Respiratory Respiratory: no cough, no dyspnea, no wheezing, no excessive phlegm production - Gastrointestinal Gastrointestinal: diarrhea, no abdominal pain, no hematemesis, no hematochezia, no melena, no nausea, no vomiting - Genitourinary Genitourinary: no change in urinary stream, no dysuria, no flank pain, no hematuria - Musculoskeletal Musculoskeletal ROS IM: no numbness, no tingling - Integumentary Integumentary IM: no rash, no unusual bruising - Neurological Neurological ROS: no confusion, no convulsions, no focal weakness, no numbness, no tingling, no tremor(s) - Hematologic/Lymphatic Hematologic/Lymphatic: no easy bruising - Constitutional Vitals: Temp Pulse Resp BP Pulse Ox 98.1 F 50 16 116/58 98 04/24/18 07:58 04/24/18 07:58 04/24/18 07:58 04/24/18 07:58 04/24/18 07:58 General appearance: Present: cooperative, mild distress, A&O X 3, pleasant, answers questions appropriately Exam: . - Head Head exam: Present: atraumatic, normocephalic - Neck Neck exam general surgery: Present: supple, trachea midline. Absent: lymphadenopathy - Respiratory Respiratory exam: Present: CTAB. Absent: accessory muscle use, rales, rhonchi, wheezes - Cardiovascular Cardiovascular exam: Present: RRR, +S1, +S2. Absent: diastolic murmur, gallop, rubs, systolic murmur - GI/Abdominal GI/Abdominal exam: Present: normal bowel sounds, soft, no peritoneal signs. Absent: distended, tenderness - Extremities Exam Extremities exam: Present: warm, radial pulses palpable and symmetrical. Absent : calf tenderness, cyanotic, pedal edema - Neurological Exam Neurological exam: Present: CN II-XII intact, oriented X3, no focal deficits. Absent: facial droop, speech deficit - Skin Skin exam: Present: dry, intact Internal Med - H&P Results - Labs CBC & Chem 7: 04/24/18 00:59 04/24/18 00:59 - EKG Data EKG shows normal: sinus rhythm Rate: bradycardia - Impressions Impressions Head CT 04/24/18 00:20 IMPRESSION: No acute intracranial abnormality. D/ / Tigre Steele MD / Tigre Steele MD Interpreting Provider: Tigre Steele MD Cervical Spine CT 04/24/18 00:21 IMPRESSION: No acute abnormality of the cervical spine. D/ / Tigre Steele MD / Tigre Steele MD Interpreting Provider: Tigre Steele MD Abdomen/Pelvis CT 04/24/18 00:22 IMPRESSION: No acute process identified. D/ / Tigre Steele MD / Tigre Steele MD Interpreting Provider: Tigre Steele MD Chest X-Ray 04/24/18 00:51 IMPRESSION: Negative portable chest. D/ / Tigre Steele MD / Tigre Steele MD Interpreting Provider: Tigre Steele MD - Assessment and plan (1) Syncope Current Visit: Yes Status: Suspected Assessment and plan: Patient with an episode of syncope. Either vasovagal or orthostatic/blood pressure medication related. Given that she may have either taken and new blood pressure medication ( lisinopril), or may have taken a different blood pressure medication by mistake (toprol xl), this may very well have contributed to her low blood pressure during this episode which caused her to pass out. She did not have diarrhea also prior to onset of this episode. For now we will monitor her and work her up for syncope with carotid Dopplers An 2-D echocardiogram. Also continue monitoring her with telemetry. Moderate risk for complications. Qualifiers: Syncope type: vasovagal syncope Qualified Code(s): R55 - Syncope and collapse (2) Acute kidney injury Current Visit: Yes Status: Acute Assessment and plan: Patient has mild acute kidney injury on chronic kidney disease stage III. Gentle IV hydration. (3) CKD (chronic kidney disease) stage 3, GFR 30-59 ml/min Current Visit: Yes Status: Acute Assessment and plan: Management as above (4) Hypertension Current Visit: Yes Status: Chronic Assessment and plan: Blood pressure well controlled at this time. Will resume home medications but hold lisinopril for now. If her blood pressure is high, consider restarting it at a lower dose. Qualifiers: Hypertension type: essential hypertension Qualified Code(s): I10 - Essential (primary) hypertension (5) Bradycardia Current Visit: Yes Status: Acute Assessment and plan: Patient having bradycardia currently. Again it could be due to taking extra dose of metoprolol by mistake . For now we will monitor with telemetry. Check thyroid levels. Hold metoprolol for now. - Time Spent With Patient Total time spent is greater than 50% in coordination of care (as documented) at patient's floor/unit and/or counseling patient:
[2018-04-24] MEDS: Ringers Solution, Lactated 1,000 ML IVC SCH ×2 (10:00→23:46)
[2018-04-24 10:56] LABS: Thyroid Stimulating Hormone 4.465 mcIU/mL (0.340-5.600)
[2018-04-24] MEDS ORDERED: Acetaminophen/Butalbital/CaffeineTABLET PO PRN (12:39)
[2018-04-24] MEDS ORDERED: hydrOXYzine pamoate 25 MG CAPSULE PO PRN (12:39)
[2018-04-24] MEDS ORDERED: hydrALAZINE 25 MG TABLET PO PRN (12:39)
--- NOTE | 2018-04-24 14:54 | Electrocardiograph Report ---
[address] [place], [place] [address] Test Date: 2018-04-24 Pat Name: Medina Cotter Department: [id number] Room: 3B43 Gender: F [employer] Cut Sawyer: : 1945 Requested By: Mike Randle Order Number: [id number] Reading MD: Alicia Sandoval Measurements Intervals [place] Rate: 51 P: 65 UT: 175 QRS: 17 QRSD: 104 T: 47 QT: 476 QTc: 439 Interpretive Statements Sinus rhythm Electronically Signed On 04-24-2018 14:52:52 EDT by Alicia Sandoval
[2018-04-24] MEDS: *HR* Heparin 5,000 UNIT/ML VIAL SQ SCH (17:28)
[2018-04-24] MEDS: Famotidine 20 MG TABLET PO SCH (21:18)
[2018-04-24] MEDS: Pregabalin 75 MG CAPSULE PO SCH (21:19)
[2018-04-25 05:41] LABS: Basophils # 0.1 K/mcL (0.0-0.2); Basophils % 1.3 %; Eosinophils # 0.6 K/mcL (0.0-0.6); Eosinophils % 10.1 %; Hematocrit 38.4 % (35.3-44.9); Immature Granulocytes % 0.2 % (0-4); Lymphocytes # 2.3 K/mcL (0.6-4.6); Lymphocytes % 40.6 %; Mean Corpuscular HGB Conc 30.7 g/dL (31.6-35.5); Mean Corpuscular Hemoglobin 28.6 pg (28.0-33.3); Mean Platelet Volume 10.9 fL (9.4-12.4); Monocytes # 0.5 K/mcL (0.0-1.3); Monocytes % 8.1 %; Neutrophils # 2.2 K/mcL (1.6-8.9); Platelet Count 240 K/mcL (140-400); Red Blood Count 4.13 M/mcL (3.82-4.97); Red Cell Distribution Width 15.4 % (11.5-14.5); Segmented Neutrophils % 39.7 %
[2018-04-25 05:58] LABS: BUN/Creatinine Ratio 18 (6-26); Blood Urea Nitrogen 19 mg/dL (8-23); Carbon Dioxide 24 mEq/L (23-29); Chloride 110 mEq/L (98-107); Glucose 88 mg/dL (70-105); Osmolality,Calculated 294 (280-300); Sodium 141 mEq/L (136-145); eGFR For Non-African Americans 51 (> 60)
[2018-04-25] MEDS: *HR* Heparin 5,000 UNIT/ML VIAL SQ SCH ×2 (06:11→17:39)
[2018-04-25 06:21] LABS: Hemoglobin 11.8 g/dL (11.5-15.4)
[2018-04-25] MEDS: Pregabalin 75 MG CAPSULE PO SCH (08:37)
[2018-04-25] MEDS: Famotidine 20 MG TABLET PO SCH (08:38)
[2018-04-25] MEDS ORDERED: Metoprolol XL (24 HR) Succ 25 MG TAB.ER.24H PO SCH (09:00)
--- NOTE | 2018-04-25 13:58 | Discharge Summary ---
- NOTES TO OUTPATIENT PROVIDER Notes to Outpatient Provider: HUGO ON CKD. Renal function improved with fluid. Please f/u. Syncopal event; likely vasovagal; ocurred during multiple episodes of diarrhea and vomiting x1 day. Negative for orthostasis, carotid imaging with rt mod stenosis, left with non stenotic plaque, TTE grossly normal. Medication could also be a contributing factor as she has recently started AVIS I. This was held and patient improved. BP remains stable. Refrain restarting AVIS I at d/c Date of Encounter: 04/25/18 Time of Encounter: 13:56 - Discharge Diagnosis (1) Syncope Priority: Primary Status: Suspected Assessment and Plan: Presented following a single syncopal event. She reports that this occurred shortly after experiencing many bouts of diarrhea and vomiting. This is likely due to either vasovagal event or orthostatic/blood pressure medication related event. She is also reporting she was recently started on 20 mg of lisinopril. Lisinopril was held. Blood pressures remained stable throughout stay and are at baseline. Additionally, the patient was noted to have sinus bradycardia and is currently taking Toprol-XL. I am concerned that she may have mistaken her Toprol-XL for lisinopril and take an extra dose however, the patient denies this. Echocardiogram obtained and found to be grossly normal. Carotid Dopplers revealed right moderate carotid artery stenosis, left carotid artery with nonstenotic plaque. No return of syncopal-like events throughout the stay. No longer bradycardic. Uneventful hospital course. Patient is requesting discharge this time. Upon discharge I will discontinue lisinopril as the patient's blood pressure has been stable without much throughout the hospital stay. She has been instructed to follow with her PCP as early as Saturday to further evaluate the need for AVIS inhibitor. Additionally, she has been instructed to journal her blood pressures throughout the next 3-4 days until follow-up to better titrate blood pressure medications. I discussed returning to the ED should the patient began to feel dizzy, weak and experienced near syncope or syncopal events. The patient verbalizes understanding of denies any further questions at this time. Qualifiers: Syncope type: vasovagal syncope Qualified Code(s): R55 - Syncope and collapse (2) Acute kidney injury Priority: Secondary Status: Resolved Assessment and Plan: Patient had mild acute kidney injury on chronic kidney disease stage III. Gentle IV hydration provided. Renal function improved, and normalized. (3) Hypertension Priority: Primary Status: Chronic Assessment and Plan: Blood pressure well controlled at this time Continue home meds Stop lisinopril at D/C D/w PCP regarding restarting AVIS I Qualifiers: Hypertension type: essential hypertension Qualified Code(s): I10 - Essential (primary) hypertension (4) CKD (chronic kidney disease) stage 3, GFR 30-59 ml/min Priority: Secondary Status: Acute Assessment and Plan: as above (5) Bradycardia Priority: Secondary Status: Resolved Assessment and Plan: HR 76 this afternoon. There is some concern that she had accidentally taken an additional dose of BB, however she denies this. BB was resumed throughout stay and bradycardia resolved. Will continue BB at d/c Hospital course: Ms. Cotter is a 72 year old female Presented following a single syncopal event. She reports that this occurred shortly after experiencing many bouts of diarrhea and vomiting. This is likely due to either vasovagal event or orthostatic/blood pressure medication related event. She is also reporting she was recently started on 20 mg of lisinopril. Lisinopril was held. Blood pressures remained stable throughout stay and are at baseline. Additionally, the patient was noted to have sinus bradycardia and is currently taking Toprol-XL. I am concerned that she may have mistaken her Toprol-XL for lisinopril and take an extra dose however, the patient denies this. Echocardiogram obtained and found to be grossly normal. Carotid Dopplers revealed right moderate carotid artery stenosis, left carotid artery with nonstenotic plaque. No return of syncopal-like events throughout the stay. No longer bradycardic. Uneventful hospital course. Patient is requesting discharge this time. Upon discharge I will discontinue lisinopril as the patient's blood pressure has been stable without much throughout the hospital stay. She has been instructed to follow with her PCP as early as Saturday to further evaluate the need for AVIS inhibitor. Additionally, she has been instructed to journal her blood pressures throughout the next 3-4 days until follow-up to better titrate blood pressure medications. I discussed returning to the ED should the patient began to feel dizzy, weak and experienced near syncope or syncopal events. The patient verbalizes understanding of denies any further questions at this time. Discharge discussed with: patient, family, nurse - Time Spent with Patient Total time spent providing and/or coordinating discharge services: Less than 30 minutes - Discharge Medications Home Medications: Ranitidine HCl [Acid Jack Tamp Operator] 150 mg PO BID #10 tablet 03/24/18 [Rx] hydrOXYzine HCl [Hydroxyzine HCl] 25 mg PO Q6HR PRN #20 tab 03/24/18 [Rx] Allopurinol [Zyloprim 100 MG] 100 mg PO DAILY 03/28/18 [History] Amitriptyline HCl 75 mg PO HS 03/28/18 [History] Citalopram [CeleXA] 20 mg PO DAILY 03/28/18 [History] Ergocalciferol (VITAMIN D2) [Vitamin D2] 50,000 unit PO QWEEK 03/28/18 [History] Furosemide [Lasix] 40 mg PO DAILY 03/28/18 [History] Potassium Chloride [K-Tab ER] 20 meq PO BID 03/28/18 [History] Pregabalin [Lyrica] 150 mg PO BID 03/28/18 [History] Metoprolol XL (24 HR) Succ [Toprol Xl] 25 mg PO DAILY #30 tab.er.24h 04/01/18 [ Rx] Butalbital/Aspirin/Caffeine [Azrcxbvxhu-RMM-Vkwafthr Cap] 1 cap PO Q4H PRN 04/24 [History] hydrALAZINE [HydrALAZINE] 100 mg PO Q8HR PRN 04/24/18 [History] Allergies/Adverse Reactions: 3 Allergy/AdvReac Type Severity Reaction Status Date / Time diazepam [From Valium] AdvReac Hallucinati Verified 03/28/18 13:54 ng Date of admission: 04/24/18 03:27 Primary care physician: Pedro Melendrez MD Discharging clinician: Robert Valdez Anticipated date of discharge: 04/25/18 - Constitutional Vitals: Temp Pulse Resp BP Pulse Ox 97.9 F 76 16 119/55 97 04/25/18 11:56 04/25/18 11:56 04/25/18 11:56 04/25/18 11:56 04/25/18 11:56 General appearance: Present: cooperative, mild distress, A&O X 3, pleasant, answers questions appropriately Exam: . - Head Head exam: Present: atraumatic, normocephalic - Eye Eye exam: Present: PERRL, conjuntiva pink, sclera anicteric Pupils: Present: PERRL - Neck Neck exam general surgery: Present: supple, trachea midline. Absent: lymphadenopathy - Respiratory Respiratory exam: Present: CTAB. Absent: accessory muscle use, rales, rhonchi, wheezes - Cardiovascular Cardiovascular exam: Present: RRR, +S1, +S2. Absent: diastolic murmur, gallop, rubs, systolic murmur - GI/Abdominal GI/Abdominal exam: Present: normal bowel sounds, soft, no peritoneal signs. Absent: distended, tenderness - Extremities Exam Extremities exam: Present: warm, radial pulses palpable and symmetrical. Absent : calf tenderness, cyanotic, pedal edema - Neurological Exam Neurological exam: Present: CN II-XII intact, oriented X3, no focal deficits. Absent: pronater drift, facial droop, speech deficit - Skin Skin exam: Present: dry, intact - Patient Status Disposition: Home Health Service Condition: Undetermined Functional capacity at discharge: independent ambulation Overall status at discharge: patient is progressing back to baseline - Discharge Instructions Follow Up With: Pedro Melendrez MD [Primary Care Provider] - 05/05/18 2:00 pm - Diet and Activity Activity: increase activity as tolerated, resume usual activities as tolerated
--- NOTE | 2018-04-25 14:31 | Physician Discharge Referral ---
Home Health/Hosp Referral Info Transfer to: Home Health Attending Provider: Leeanna Provider in Charge Post Discharge: PCP - Diagnosis (1) Syncope Priority: Primary Status: Suspected (2) Acute kidney injury Priority: Secondary Status: Resolved (3) Hypertension Priority: Secondary Status: Chronic (4) CKD (chronic kidney disease) stage 3, GFR 30-59 ml/min Priority: Secondary Status: Acute (5) Bradycardia Priority: Secondary Status: Resolved - Respiratory Orders Smoking Cessation: Smoking cessation has been advised. For more information, call the [place] [employer] Quit Line at [phone]. - Diet/Nutrition Diet/Nutrition Orders: No Added Salt (TATE), Cardiac, No Concentrated Sweets - Activity Activity Orders: Ambulate - Services Needed Following services are medically necessary services: Nursing, Home Health Aide - Transfer Medications Home Medications: Ranitidine HCl [Acid Enterprise Business Architect] 150 mg PO BID #10 tablet 03/24/18 [Rx] hydrOXYzine HCl [Hydroxyzine HCl] 25 mg PO Q6HR PRN #20 tab 03/24/18 [Rx] Allopurinol [Zyloprim 100 MG] 100 mg PO DAILY 03/28/18 [History] Amitriptyline HCl 75 mg PO HS 03/28/18 [History] Citalopram [CeleXA] 20 mg PO DAILY 03/28/18 [History] Ergocalciferol (VITAMIN D2) [Vitamin D2] 50,000 unit PO QWEEK 03/28/18 [History] Furosemide [Lasix] 40 mg PO DAILY 03/28/18 [History] Potassium Chloride [K-Tab ER] 20 meq PO BID 03/28/18 [History] Pregabalin [Lyrica] 150 mg PO BID 03/28/18 [History] Metoprolol XL (24 HR) Succ [Toprol Xl] 25 mg PO DAILY #30 tab.er.24h 04/01/18 [ Rx] Butalbital/Aspirin/Caffeine [Gipvhbhgtw-IFT-Fqiigdmg Cap] 1 cap PO Q4H PRN 04/24 [History] hydrALAZINE [HydrALAZINE] 100 mg PO Q8HR PRN 04/24/18 [History] Allergies/Adverse Reactions: 3 Allergy/AdvReac Type Severity Reaction Status Date / Time diazepam [From Valium] AdvReac Hallucinati Verified 03/28/18 13:54 ng Certification: Further, I certify that my clinical findings support that this patient is homebound (i.e. absences from home require considerable and taxing effort and are for medical reasons or anabaptist services or infrequently or short duration when for other reasons) because: Homebound Reason: Patient requires assistance of a person or device to safely leave home Attestation: My signature below is to certify that this patient is under my care and that I, or nurse practitioner, or a physician's hr administrative assistant working with me, has a face-to -face encounter with this patient.
[2018-04-25 16:02] VITALS: BP 127/68
== END 2018-04-25 19:09 | disposition home health service (06) ==
LOC: EMEROOARM 00:12 → 3BNU 00:12
PROVIDERS: ADMIT Pediatrics; ATTEND Pediatrics